=== PATIENT | female | born 1995 | race American Indian/Alaskan Native ===

== ENCOUNTER 2016-11-16 20:39 | Inpatient (IN) | payer SELFPAY ==
[2016-11-16 21:25] LABS: Basophils % (Auto) 0.2 % (0.0-1.8); Eosinophils % (Auto) 2.2 % (0.0-4.3); Hemoglobin 12.5 gm/dl (10.1-14.3); Mean Corpuscular HGB Conc 35 % (30-34); Mean Corpuscular Hemoglobin 32 pg (28-32); Mean Corpuscular Volume 92 fl (79-97); Platelet Count 213 K/mm3 (140-440); Red Blood Count 3.93 M/mm3 (3.65-5.03); Red Cell Distribution Width 13.5 % (13.2-15.2)
[2016-11-16 21:30] LABS: Anion Gap 18 mmol/L; BUN/Creatinine Ratio 6.25; Blood Urea Nitrogen 5 mg/dL (7-17); Calcium 8.4 mg/dL (8.4-10.2); Carbon Dioxide 24 mmol/L (22-30); Chloride 98.6 mmol/L (98-107); Glucose 116 mg/dL (65-100); Sodium 138 mmol/L (137-145)
[2016-11-16 21:31] LABS: Potassium 2.8 mmol/L (3.6-5.0)
--- NOTE | 2016-11-16 22:48 | XRay Report ---
FINAL REPORT PROCEDURE: XR CHEST ROUTINE 2V TECHNIQUE: PA and lateral chest radiographs were obtained. CPT 10367 HISTORY: Shortness of breath COMPARISON: No prior studies are available for comparison. FINDINGS: Heart: Normal contour. Mediastinum/Vessels: Normal contour. Lungs/Pleural space: No infiltrate, effusion, or pneumothorax is seen. Bony thorax: No acute osseous abnormality. Other: IMPRESSION: No radiographic evidence of acute cardiopulmonary disease process.
[2016-11-16] MEDS ORDERED: ZOFRAN IV ONE (22:54)
[2016-11-16] MEDS ORDERED: K-DUR PO ONE (22:54)
[2016-11-16] MEDS ORDERED: D5NS 1,000 ML IV SCH ×2 (23:00)
[2016-11-16 23:16] LABS: Albumin 3.6 g/dL (3.9-5); Albumin/Globulin Ratio 1.2 %; Bilirubin,Indirect 0.9 mg/dL; Bilirubin,Total 1.9 mg/dL (0.1-1.2); Total Protein 6.6 g/dL (6.3-8.2)
[2016-11-17 00:24] LABS: Bilirubin,Urine NEG (Negative); Blood,Urine SM (Negative); Ketones,Urine NEG (Negative); Leukocyte Esterase,Urine NEG (Negative); Nitrite,Urine NEG (Negative); Urobilinogen,Urine < 2.0 mg/dL (<2.0)
[2016-11-17] MEDS ORDERED: TORADOL IV ONE (00:25)
[2016-11-17] MEDS ORDERED: TYLENOL PO ONE (00:27)
[2016-11-17] MEDS ORDERED: NACL ONE (00:59)
--- NOTE | 2016-11-17 01:18 | Emergency Department Report ---
ED N/V/D HPI - General Chief complaint: Dyspnea/Respdistress Stated complaint: WEAK, BODY PAIN, DESMOND Time Seen by Provider: 11/16/16 22:47 Source: patient Mode of arrival: Ambulatory Limitations: No Limitations - History of Present Illness Initial comments: 21-year-old female with no significant Past medical history presents to the hospital with continued nausea, vomiting, pain and generalized weakness. Symptoms started after eating a marble cake at a [employer] 1 the night. Patient developed vomiting, hot flashes, and puritic rash. Patient was seen and evaluated at [facility] on the . She was diagnosed with allergic dermatitis due to ingested food. Patient also had a headache, vomiting, by mouth intolerance, and upper abdominal discomfort at that time. She was discharged on cetirizine, hydroxyzine, and prednisone 20 mg 4 days. Rash has improved the patient's continued while taking the prescribed medication but pt continues to have vomiting with by mouth intolerance and body aches. She has not been able to eat or drink much in the last 6 days. Patient complains of frontal headache. She also complains of posterior neck pain, upper abdominal pain, and weight loss. - Related Data Allergies Allergy/AdvReac Type Severity Reaction Status Date / Time No Known Allergies Allergy Verified 11/16/16 20:48 ED Review of Systems ROS: Stated complaint: WEAK, BODY PAIN, DESMOND Other details as noted in HPI Comment: All other systems reviewed and negative Other: Constitutional: Fever developed while in the ED Eyes: No eye pain visual changes ENT: No ear pain or throat pain Neck: Neck pain Respiratory: Denies cough wheezing shortness of breath Cardiovascular: Positive chest pain GI: abdominal pain, nausea, vomiting. Denies diarrhea : Denies dysuria Musculoskeletal: Denies back pain, joint swelling Skin: Denies rash, lesions, erythema Neurologic: Denies numbness, weakness Psychiatric: Denies suicidal ideation, hallucinations ED Past Medical Hx - Past Medical History Previous Medical History?: No - Surgical History Past Surgical History?: No - Social History Smoking Status: Never Smoker Substance Use Type: Alcohol ED Physical Exam - General Limitations: No Limitations - Other Other exam information: General: No limitations, patient is alert in no acute distress Head exam: Atraumatic, normocephalic Eyes exam: Normal appearance, pupils equal reactive to light, extraocular movements intact ENT: Dry mucous membrane Neck exam: Normal inspection, full range of motion, no meningismus, mild generalized posterior tenderness however no nuchal rigidity Respiratory exam: Clear to auscultation bilateral, no wheezes, rales, crackles Cardiovascular: Mild tachycardia regular rhythm Abdomen: Soft, nondistended, right upper quadrant, epigastric, left upper quadrant tenderness, with normal bowel sounds, no rebound, or guarding Extremity: Full range of motion normal inspection no deformity Back: Normal Inspection, full range of motion, no tenderness Neurologic: Alert, oriented x3, cranial nerves intact, no motor or sensory deficit Psychiatric: normal affect, normal mood Skin: Warm, dry, intact ED Course Vital Signs 11/16/16 11/17/16 11/17/16 20:49 00:21 01:12 Temperature 98 F 101.9 F H Pulse Rate 120 H 99 H Respiratory 16 18 18 Rate Blood Pressure 92/57 Blood Pressure 91/60 [Left] O2 Sat by Pulse 100 100 100 Oximetry 11/17/16 01:28 Temperature Pulse Rate Respiratory 20 Rate Blood Pressure Blood Pressure [Left] O2 Sat by Pulse Oximetry - Reevaluation(s) Reevaluation #1: 11/17/16 Patient received Toradol, Tylenol, D5NS, by mouth potassium and Zofran with improving symptoms - Consultations Consultation #1: 11/17/16 CT was also discussed with Dr. Ward. Nt a surgical case at this time. Intussusception of the bowel may be intermittent ED Medical Decision Making - Lab Data Result diagrams: 11/16/16 20:55 11/16/16 20:55 Lab Results 11/16/16 11/16/16 11/16/16 Range/Units 20:55 20:55 20:55 WBC 19.0 H (4.5-11.0) K/mm3 RBC 3.93 (3.65-5.03) M/mm3 Hgb 12.5 (10.1-14.3) gm/dl Hct 36.0 (30.3-42.9) % MCV 92 (79-97) fl MCH 32 (28-32) pg MCHC 35 H (30-34) % RDW 13.5 (13.2-15.2) % Plt Count 213 (140-440) K/mm3 Lymph % (Auto) 6.8 L (13.4-35.0) % [place] % (Auto) 7.8 H (0.0-7.3) % Eos % (Auto) 2.2 (0.0-4.3) % Baso % (Auto) 0.2 (0.0-1.8) % Lymph # 1.3 (1.2-5.4) K/mm3 [place] # 1.5 H (0.0-0.8) K/mm3 Eos # 0.4 (0.0-0.4) K/mm3 Baso # 0.0 (0.0-0.1) K/mm3 Seg Neutrophils % 83.0 H (40.0-70.0) % Seg Neutrophils # 15.8 H (1.8-7.7) K/mm3 Sodium 138 (137-145) mmol/L Potassium 2.8 L* (3.6-5.0) mmol/L Chloride 98.6 (98-107) mmol/L Carbon Dioxide 24 (22-30) mmol/L Anion Gap 18 mmol/L BUN 5 L (7-17) mg/dL Creatinine 0.8 (0.7-1.2) mg/dL Estimated GFR > 60 ml/min BUN/Creatinine Ratio 6.25 % Glucose 116 H (65-100) mg/dL Calcium 8.4 (8.4-10.2) mg/dL Magnesium 2.10 (1.7-2.3) mg/dL Total Bilirubin (0.1-1.2) mg/dL Direct Bilirubin (0-0.2) mg/dL Indirect Bilirubin mg/dL AST (5-40) units/L ALT (7-56) units/L Alkaline Phosphatase (35-129) units/L Troponin T < 0.010 (0.00-0.029) ng/mL Total Protein (6.3-8.2) g/dL Albumin (3.9-5) g/dL Albumin/Globulin Ratio % Lipase (13-60) units/L Urine Color (Yellow) Urine Turbidity (Clear) Urine pH (5.0-7.0) Ur Specific [place] (1.003-1.030) Urine Protein (Negative) mg/dL Urine Glucose (UA) (Negative) mg/dL Urine Ketones (Negative) mg/dL Urine Blood (Negative) Urine Nitrite (Negative) Ur Reducing Substances Urine Bilirubin (Negative) Urine Ictotest Urine Urobilinogen (<2.0) mg/dL Ur Leukocyte Esterase (Negative) Urine WBC (Auto) (0.0-6.0) /HPF Urine RBC (Auto) (0.0-6.0) /HPF Urine HCG, Qual (Negative) 11/16/16 11/16/16 Range/Units 20:55 23:41 WBC (4.5-11.0) K/mm3 RBC (3.65-5.03) M/mm3 Hgb (10.1-14.3) gm/dl Hct (30.3-42.9) % MCV (79-97) fl MCH (28-32) pg MCHC (30-34) % RDW (13.2-15.2) % Plt Count (140-440) K/mm3 Lymph % (Auto) (13.4-35.0) % [place] % (Auto) (0.0-7.3) % Eos % (Auto) (0.0-4.3) % Baso % (Auto) (0.0-1.8) % Lymph # (1.2-5.4) K/mm3 [place] # (0.0-0.8) K/mm3 Eos # (0.0-0.4) K/mm3 Baso # (0.0-0.1) K/mm3 Seg Neutrophils % (40.0-70.0) % Seg Neutrophils # (1.8-7.7) K/mm3 Sodium (137-145) mmol/L Potassium (3.6-5.0) mmol/L Chloride (98-107) mmol/L Carbon Dioxide (22-30) mmol/L Anion Gap mmol/L BUN (7-17) mg/dL Creatinine (0.7-1.2) mg/dL Estimated GFR ml/min BUN/Creatinine Ratio % Glucose (65-100) mg/dL Calcium (8.4-10.2) mg/dL Magnesium (1.7-2.3) mg/dL Total Bilirubin 1.90 H (0.1-1.2) mg/dL Direct Bilirubin 1.0 H (0-0.2) mg/dL Indirect Bilirubin 0.9 mg/dL AST 24 (5-40) units/L ALT 69 H (7-56) units/L Alkaline Phosphatase 183 H (35-129) units/L Troponin T (0.00-0.029) ng/mL Total Protein 6.6 (6.3-8.2) g/dL Albumin 3.6 L (3.9-5) g/dL Albumin/Globulin Ratio 1.2 % Lipase 105 H (13-60) units/L Urine Color Yellow (Yellow) Urine Turbidity Clear (Clear) Urine pH 6.0 (5.0-7.0) Ur Specific [place] 1.004 (1.003-1.030) Urine Protein 30 mg/dl (Negative) mg/dL Urine Glucose (UA) Neg (Negative) mg/dL Urine Ketones Neg (Negative) mg/dL Urine Blood Sm (Negative) Urine Nitrite Neg (Negative) Ur Reducing Substances Not Reportable Urine Bilirubin Neg (Negative) Urine Ictotest Not Reportable Urine Urobilinogen < 2.0 (<2.0) mg/dL Ur Leukocyte Esterase Neg (Negative) Urine WBC (Auto) 4.0 (0.0-6.0) /HPF Urine RBC (Auto) 2.0 (0.0-6.0) /HPF Urine HCG, Qual Negative (Negative) - Radiology Data Radiology results: report reviewed Chest x-ray: No acute findings CT head: No acute findings Ultrasound abdomen: No acute findings CT abdomen and pelvis IV contrast: Short segment intussusception involving small bowel loops of the right mid abdomen. No bowel obstruction. There are several fluid-filled small bowel loops. May be mild enteritis of other small bowel. Appendix normal. small amount Free fluid in pelvis physiologic reactive. - Medical Decision Making Other differential: Pancreatitis, dehydration, initially abnormality, sepsis Patient's hypokalemia is likely secondary to vomiting and poor by mouth intake. Leukocytosis is probably a combination of recent stable use as well as acute infection. No bacterial infection identified after laboratory testing and imaging. I highly suspect a viral syndrome. Patient will be admitted to the hospital for further hydration, potassium supplementation, and monitoring of symptoms. - Differential Diagnosis gastritis, viral syndrome, food poisoning, intracranial lesion, cholecystit Critical Care Time: No Critical care attestation.: If time is entered above; I have spent that time in minutes in the direct care of this critically ill patient, excluding procedure time. ED Disposition Clinical Impression: Viral syndrome, Vomiting, Fever, Leukocytosis, Hypokalemia, Elevated liver enzymes, Dehydration Disposition: DC-09 OP ADMIT IP TO THIS HOSP Is pt being admited?: Yes Condition: Stable Time of Disposition: 03:30 (Dr Griffith/hosp)
--- NOTE | 2016-11-17 01:24 | Ultrasound Report ---
FINAL REPORT EXAM: US ABDOMEN COMPLETE HISTORY: elevated lft, fever COMPARISON: None available. TECHNIQUE: Several real-time grayscale and color Doppler images were obtained. FINDINGS: Visualized portions of the pancreas and liver are homogeneous in echogenicity. Visualized aorta is normal in caliber. Proximal aorta measures 1.0 centimeters in diameter. Right kidney measures 13.0 centimeters in length. Left kidney measures 11.8 centimeters in length. No hydronephrosis. No shadowing gallstones. Gallbladder is contracted. This limits evaluation of gallbladder wall thickening. No pericholecystic fluid. Common bile duct measures 2 millimeters in thickness. No biliary dilatation. Echogenic foci within the spleen liver which could reflect granulomas. IMPRESSION: No cholelithiasis or biliary dilatation. Echogenic foci in the spleen liver which may reflect calcified granulomas.
--- NOTE | 2016-11-17 01:56 | Cat Scan Report ---
FINAL REPORT EXAM: CT HEAD/BRAIN WO CON HISTORY: cárdenas, n,v COMPARISON: None available. TECHNIQUE: Axial images obtained skull base through vertex. FINDINGS: No acute intracranial hemorrhage, midline shift or pathologic extra axial fluid collection. Ventricles and cisterns are normal in size and configuration for the patient's age. Manzanares-white differentiation preserved. Calvarium grossly intact. Mild mucosal thickening the paranasal sinuses. Mastoid air cells are clear. Orbits are grossly unremarkable. IMPRESSION: No grossly acute intracranial abnormality.
--- NOTE | 2016-11-17 02:52 | Cat Scan Report ---
FINAL REPORT EXAM: CT ABDOMEN PELVIS W CON HISTORY: n,v, upper abd pain COMPARISON: Abdominal ultrasound from the same date. TECHNIQUE: Contiguous axial images were obtained. Additional sagittal and coronal reformatted images were obtained. Administration of IV contrast given per institution protocol. Images submitted for interpretation. FINDINGS: Lung bases are clear. No calcified gallstones or biliary dilatation. Mild focal fatty infiltration of the liver along the falciform ligament. Calcified granulomas within the spleen. Liver, pancreas, adrenal glands are grossly unremarkable. No solid renal lesion. Mild prominence the renal pelves and ureters bilaterally which may relate to distended state of the urinary bladder. No obstructive lesion identified along the course of the ureters. No perinephric fat stranding or fluid. Short segment intussusception right mid abdomen. This measures 5 centimeters in length (series 2, image 171). No associated bowel obstruction. Several fluid-filled small bowel loops. Mild enteritis cannot be excluded. The appendix measures 4-5 millimeters in diameter and is normal in caliber (series 200, image 54).. Uterus and ovaries are grossly unremarkable. Small amount of free fluid in the pelvis which may be physiologic or reactive. Bony pelvis and lumbar spine are grossly intact. IMPRESSION: Short segment intussusception involving small bowel loops segment right mid abdomen. No associated bowel obstruction. There is several fluid-filled small bowel loops. There may be mild enteritis of other small bowel loops. The appendix is normal in caliber. Small amount of free fluid in the pelvis which may be physiologic or reactive. No abscess.
[2016-11-17] MEDS ORDERED: NACL 0.9% 1000 ML 1,000 ML ONE (06:32)
[2016-11-17] MEDS ORDERED: NACL 0.9% 1000 ML 1,000 ML IV ONE ×2 (07:17→08:14)
--- NOTE | 2016-11-17 07:54 | History and Physical Report ---
History of Present Illness Date of examination: 11/17/16 Date of admission: 11/17/16 Chief complaint: CC:Nausea Vomiting and Abdominal pain for 5 days. Rash for 2 days. History of present illness: ANN: 21-year-old female with no significant Past medical history presents to the hospital with continued nausea, vomiting, pain and generalized weakness for 4 days. Symptoms started after eating a cake at a green party on 12 November. Patient developed vomiting, hot flashes, and pruritic rash. Patient was seen and evaluated at [facility] on the . She was diagnosed with allergic dermatitis due to ingested food. Patient also had a headache, vomiting, poor PO intolerance, and upper abdominal discomfort at that time. She was discharged on cetirizine, hydroxyzine, and prednisone 20 mg 4 days. Rash has improved. Patient continued to have vomitingpoor PO intolerance and body aches. She has not been able to eat or drink much in the last 5 days. Patient complains of frontal headache. She also complains of posterior neck pain, upper abdominal pain, and weight loss. Past Medical History None Past Surgical History?: None Social History Smoking Status: Never Smoker Substance Use Type: Alcohol occasionally Fam HX No HTN or T2DM Review of Systems ROS: Details as noted in HPI Comment: All other systems reviewed and negative Constitutional: Fever developed while in the ED Eyes: No eye pain visual changes ENT: No ear pain or throat pain Neck: Neck pain Respiratory: Denies cough wheezing shortness of breath Cardiovascular: Positive chest pain GI: abdominal pain, nausea, vomiting. Denies diarrhea : Denies dysuria Musculoskeletal: Denies back pain, joint swelling Has Gen Body aches Skin: Denies rash, lesions, erythema Neurologic: Denies numbness, weakness Psychiatric: Denies suicidal ideation, hallucinations Past History Past Medical History: No medical history Past Surgical History: No surgical history Social history: no significant social history, lives with family Family history: no significant family history Medications and Allergies Allergies Allergy/AdvReac Type Severity Reaction Status Date / Time No Known Allergies Allergy Verified 11/16/16 20:48 Home Medications Medication Instructions Recorded Confirmed Last Taken Type No Known Home Medications [No 11/17/16 11/17/16 Unknown History Reported Home Medications] Active Meds: Active Medications Sodium Chloride (Nacl 0.9% 1000 Ml) 1,000 mls @ 999 mls/hr IV BOLUS ONE Stop: 11/17/16 08:17 Last Admin: 11/17/16 07:39 Dose: 999 mls/hr Exam - Physical Exam Narrative exam: In mild distress sec to abd pain - Constitutional Vitals: Temp Pulse Resp BP Pulse Ox 98.6 F 78 20 91/55 99 11/17/16 05:01 11/17/16 05:01 11/17/16 05:01 11/17/16 05:01 11/17/16 05:01 General appearance: Present: mild distress, well-nourished - EENT Eyes: Present: PERRL ENT: hearing intact, clear oral mucosa, other (Tongue Dry) - Neck Neck: Present: supple, normal ROM - Respiratory Respiratory effort: normal Respiratory: bilateral: CTA - Cardiovascular Heart Sounds: Present: S1 & S2. Absent: rub, click - Extremities Extremities: pulses symmetrical, No edema Peripheral Pulses: within normal limits - Abdominal General gastrointestinal: Present: soft, tender (Tender all over.No Guarding), non-distended, normal bowel sounds Female genitourinary: Present: normal - Integumentary Integumentary: Present: clear, warm, dry - Musculoskeletal Musculoskeletal: gait normal, strength equal bilaterally - Psychiatric Psychiatric: appropriate mood/affect, intact judgment & insight - Neurologic Neurologic: CNII-XII intact, moves all extremities - Allied Health Allied health notes reviewed: nursing, case management Results - Labs CBC & Chem 7: 11/16/16 20:55 11/16/16 20:55 Labs: Laboratory Last Values WBC 19.0 K/mm3 (4.5-11.0) H 11/16/16 20:55 RBC 3.93 M/mm3 (3.65-5.03) 11/16/16 20:55 Hgb 12.5 gm/dl (10.1-14.3) 11/16/16 20:55 Hct 36.0 % (30.3-42.9) 11/16/16 20:55 MCV 92 fl (79-97) 11/16/16 20:55 MCH 32 pg (28-32) 11/16/16 20:55 MCHC 35 % (30-34) H 11/16/16 20:55 RDW 13.5 % (13.2-15.2) 11/16/16 20:55 Plt Count 213 K/mm3 (140-440) 11/16/16 20:55 Lymph % (Auto) 6.8 % (13.4-35.0) L 11/16/16 20:55 [place] % (Auto) 7.8 % (0.0-7.3) H 11/16/16 20:55 Eos % (Auto) 2.2 % (0.0-4.3) 11/16/16 20:55 Baso % (Auto) 0.2 % (0.0-1.8) 11/16/16 20:55 Lymph # 1.3 K/mm3 (1.2-5.4) 11/16/16 20:55 [place] # 1.5 K/mm3 (0.0-0.8) H 11/16/16 20:55 Eos # 0.4 K/mm3 (0.0-0.4) 11/16/16 20:55 Baso # 0.0 K/mm3 (0.0-0.1) 11/16/16 20:55 Seg Neutrophils % 83.0 % (40.0-70.0) H 11/16/16 20:55 Seg Neutrophils # 15.8 K/mm3 (1.8-7.7) H 11/16/16 20:55 Sodium 138 mmol/L (137-145) 11/16/16 20:55 Potassium 2.8 mmol/L (3.6-5.0) L* 11/16/16 20:55 Chloride 98.6 mmol/L (98-107) 11/16/16 20:55 Carbon Dioxide 24 mmol/L (22-30) 11/16/16 20:55 Anion Gap 18 mmol/L 11/16/16 20:55 BUN 5 mg/dL (7-17) L 11/16/16 20:55 Creatinine 0.8 mg/dL (0.7-1.2) 11/16/16 20:55 Estimated GFR > 60 ml/min 11/16/16 20:55 BUN/Creatinine Ratio 6.25 % 11/16/16 20:55 Glucose 116 mg/dL (65-100) H 11/16/16 20:55 Calcium 8.4 mg/dL (8.4-10.2) 11/16/16 20:55 Magnesium 2.10 mg/dL (1.7-2.3) 11/16/16 20:55 Total Bilirubin 1.90 mg/dL (0.1-1.2) H 11/16/16 20:55 Direct Bilirubin 1.0 mg/dL (0-0.2) H 11/16/16 20:55 Indirect Bilirubin 0.9 mg/dL 11/16/16 20:55 AST 24 units/L (5-40) 11/16/16 20:55 ALT 69 units/L (7-56) H 11/16/16 20:55 Alkaline Phosphatase 183 units/L (35-129) H 11/16/16 20:55 Troponin T < 0.010 ng/mL (0.00-0.029) 11/16/16 20:55 Total Protein 6.6 g/dL (6.3-8.2) 11/16/16 20:55 Albumin 3.6 g/dL (3.9-5) L 11/16/16 20:55 Albumin/Globulin Ratio 1.2 % 11/16/16 20:55 Lipase 105 units/L (13-60) H 11/16/16 20:55 Urine Color Yellow (Yellow) 11/16/16 23:41 Urine Turbidity Clear (Clear) 11/16/16 23:41 Urine pH 6.0 (5.0-7.0) 11/16/16 23:41 Ur Specific [place] 1.004 (1.003-1.030) 11/16/16 23:41 Urine Protein 30 mg/dl mg/dL (Negative) 11/16/16 23:41 Urine Glucose (UA) Neg mg/dL (Negative) 11/16/16 23:41 Urine Ketones Neg mg/dL (Negative) 11/16/16 23:41 Urine Blood Sm (Negative) 11/16/16 23:41 Urine Nitrite Neg (Negative) 11/16/16 23:41 Ur Reducing Substances Not Reportable 11/16/16 23:41 Urine Bilirubin Neg (Negative) 11/16/16 23:41 Urine Ictotest Not Reportable 11/16/16 23:41 Urine Urobilinogen < 2.0 mg/dL (<2.0) 11/16/16 23:41 Ur Leukocyte Esterase Neg (Negative) 11/16/16 23:41 Urine WBC (Auto) 4.0 /HPF (0.0-6.0) 11/16/16 23:41 Urine RBC (Auto) 2.0 /HPF (0.0-6.0) 11/16/16 23:41 Urine HCG, Qual Negative (Negative) 11/16/16 23:41 - Imaging and Cardiology CT scan - abdomen: report reviewed (Short segment intussusception Rt mid abdomeninvolving small bowel loops .No Bowel obstruction.) Assessment and Plan Advance Directives: Yes VTE prophylaxis?: Chemical Plan of care discussed with patient/family: Yes - Patient Problems (1) SIRS (systemic inflammatory response syndrome) Current Visit: Yes Status: Acute Plan to address problem: Clinical picture c/w SIRS.High WBC count.Patient started on IV Levaquin for broad spectrum coverage.IV fluids for now. (2) Hypokalemia Current Visit: Yes Status: Acute Plan to address problem: IV kcl and po kcl as tolerated.Check BMP.Iv fluids also (3) Dehydration Current Visit: Yes Status: Acute Plan to address problem: IV fluids.Clear liquids as tolerated (4) Viral syndrome Current Visit: Yes Status: Acute Plan to address problem: Probable viral sndrome in view of high fever and body aches (5) Intussusception of small bowel Current Visit: Yes Status: Acute Plan to address problem: A short segment is involved.Possible abnormality for a long period of time.Do not think her symptoms are sec to this.Incidental finding.Surgical consult if necessary. (6) DVT prophylaxis Current Visit: Yes Status: Acute Plan to address problem: On Lovenox 40 mg sq qd
[2016-11-17] MEDS ORDERED: MILK OF MAGNESIA PO PRN (08:00)
[2016-11-17] MEDS ORDERED: DULCOLAX PR PRN (08:00)
[2016-11-17] MEDS ORDERED: PERCOCET 5/325 PO PRN (08:00)
[2016-11-17] MEDS ORDERED: NACL 0.9% IV ONE (08:06)
[2016-11-17] MEDS: LEVAQUIN 750MG/150ML 750 MG/150 ML BAG IV SCH (09:57)
[2016-11-17] MEDS: PEPCID IV SCH ×2 (09:58→22:35)
[2016-11-17] MEDS: D5NS 1,000 ML IV SCH ×2 (13:27→22:42)
[2016-11-17] MEDS: TYLENOL PO PRN (16:46)
[2016-11-17] MEDS: ZOFRAN IV PRN (22:34)
[2016-11-18] MEDS: TYLENOL PO PRN (00:53)
[2016-11-18] MEDS: K-DUR PO ONE ×2 (08:00→16:41)
[2016-11-18 08:19] LABS: Hematocrit 35.8 % (30.3-42.9); Mean Corpuscular HGB Conc 34 % (30-34); Mean Corpuscular Hemoglobin 31 pg (28-32); Mean Corpuscular Volume 94 fl (79-97); Platelet Count 222 K/mm3 (140-440); Red Blood Count 3.83 M/mm3 (3.65-5.03); Red Cell Distribution Width 13.8 % (13.2-15.2)
[2016-11-18 08:26] LABS: White Blood Count 23.8 K/mm3 (4.5-11.0)
[2016-11-18] MEDS: DILAUDID IV PRN ×2 (08:51→22:31)
[2016-11-18] MEDS: D5NS 1,000 ML IV SCH ×3 (08:52→20:01)
[2016-11-18] MEDS: ZOFRAN IV PRN ×3 (08:52→22:30)
--- NOTE | 2016-11-18 08:53 | Admit Criteria Form ---
Admission Criteria Documentation: SYSTEMIC OR INFECTIOUS CONDITION Clinical Indications for Admission to Inpatient Care (Place 'X' for any and all applicable criteria): Hospital admission is needed for appropriate care of the patient because of ANY ONE of the following: []I. Hemodynamic instability indicated by ANY ONE of the following(1)(2)(3)(4 )(5): []a. Vital sign abnormality not readily corrected by appropriate treatment within 12 to 24 hours indicated by ANY ONE of the following: []i) Tachycardia that persists despite appropriate treatment []ii) Hypotension that persists despite appropriate treatment []iii) Orthostatic vital sign changes that persist despite appropriate treatment []b. Vital sign abnormality that is severe indicated by ANY ONE of the following: []i. Inadequate perfusion indicated by ANY ONE of the following : []1) Lactic acidosis (greater than 2 mmol/L) []2) New abnormal capillary refill (greater than 3 seconds) []3) Reduced urine output []4) New altered mental status []5) Myocardial Ischemia []ii. Mean arterial pressure [A] less than 60 mm Hg []iii. Mean arterial pressure[A] less than 70 mm Hg after 30 minutes of appropriate treatment (eg, fluid resuscitation) []iv. Sustained heart rate greater than 120 beats per minute in adult []v. IV inotropic or vasopressor medication required to maintain adequate blood pressure or perfusion [X]II. Systemic or infectious condition causing severe symptoms or findings not responsive to emergency or observation care treatment (as appropriate) indicated by ANY ONE of the following: []a. Cardiac arrhythmias of immediate concern(1)(2)(3) []b. Severe endocrine disorder (eg, thyrotoxicosis, adrenal insufficiency)(4)(5) []c. Seizures (eg, new or recurrent)(6) []d. New-onset end organ failure or dysfunction as indicated by ANY ONE of the following: []i. Acute unexplained hypoxemia (eg, not from lung infection or chronic disease)(7)(8)(9) []ii. Acute renal failure as indicated by new onset of ANY ONE of the following(10)(11)(12)(13)(14): []1) 3-fold rise in serum creatinine from baseline []2) Serum creatinine greater than 4 mg/dL (354 micromoles/L) with acute rise greater than 0.5 mg/dL (44.2 micromoles/L) []3) Reduction of more than 75% in estimated glomerular filtration rate from baseline. []4) Estimated glomerular filtration rate less than 35 mL/min/1.73m2 ( 0.59 mL/sec/1.73m2) in child younger than 18 years. []5) Cessation of urine output indicated by ALL of the following: []A. Adequate volume status []B. Inadequate urine output as indicated by ANY ONE of the following: []a. Urine output less than 0.3 mL/kg/hr for 24 hours []b. Anuria (urine output less than 0.1 mL/kg/hr) for 12 hours []iii. Acute mental status changes(15) []iv. Acute hepatic failure (eg, plasma bilirubin greater than 4 mg/ dL (68 micromoles/L), new INR greater than 2.0)(16)(17) [X]e. Unmanageable nausea and vomiting(18) []f. New-onset or uncontrolled central diabetes insipidus(19)(20) []g. Clinically significant dehydration(18)(21) []h. Hypoglycemia(22) []i. Acidosis (pH less than 7.35) or alkalosis (pH greater than 7.45)( 22)(23) []j. Toxic drug level that indicates need for specific monitoring or treatment(24)(25) [X]k. Severe electrolyte abnormalities indicated by ALL of the following (1)(2)(3): []i. Electrolytes and associated findings are not as expected for patient baseline or acceptable treatment effects. []ii. Severe abnormalities indicated by ANY ONE of the following: []1) Sodium less than 130 mEq/L (mmol/L) (new) []2) Sodium less than 135 mEq/L (mmol/L) with ANY ONE of the following: []A. Uncorrectable (to near normal or chronic baseline) after trial of outpatient and emergency treatment []B. Altered mental status []C. Seizures []D. Severe medical etiology requiring inpatient management (eg , heart failure, hypovolemia) []3) Sodium greater than 155 mEq/L (mmol/L) []4) Sodium greater than 150 mEq/L (mmol/L) with ANY ONE of the following: []A. Uncorrectable (to near normal or chronic baseline) with outpatient and emergency treatment []B. Altered mental status []C. Seizures []D. Severe medical etiology (eg, hypovolemia, diabetes insipidus) []5) Potassium less than 2.5 mEq/L (mmol/L) despite outpatient and emergency treatment [X]6) Potassium less than 3 mEq/L (mmol/L) with ANY ONE of the following : []A. Weakness []B. Cardiac abnormality (eg, arrhythmia, conduction disturbance ) []C. Cardiac ischemia []D. Ileus []E. Ongoing medical cause requiring inpatient management (eg, acute renal wasting or SIADH) [X]F. Other severe symptoms []7) Potassium greater than 6.5 mEq/L (mmol/L) []8) Potassium greater than 5 mEq/L (mmol/L) with ANY ONE of the following: []A. Uncorrectable (to near normal or chronic baseline) with outpatient and emergency treatment []B. Severe ECG findings[A] []C. Acute worsening of renal failure (creatinine greater than 2.5 mg/dL (221 micromoles/L) or significant elevation for age and size) []D. Severe weakness []E. Severe medical etiology (eg, hemolysis, infection, drug overdose) []9) Calcium less than 7 mg/dL (1.75 mmol/L) despite outpatient and emergency treatment(5) []10) Calcium less than 8 mg/dL (2 mmol/L) with significant symptoms or findings (eg, altered mental status, muscle spasms, seizures, breathing difficulty, cardiac abnormality (eg, arrhythmia or conduction disturbance))(5) []11) Calcium greater than 14 mg/dL (3.5 mmol/L)(5) []12) Calcium greater than 12 mg/dL (3 mmol/L) with ANY ONE of the following(5): []A. Uncorrectable (to near normal or chronic baseline) with outpatient and emergency treatment []B. Significant dehydration or hypovolemia as indicated by ALL of the following(3)(6)(7): []a. Not resolved with initial treatments []b. Clinically significant dehydration as indicated by ANY ONE of the following: [](1) Vomiting refractory to outpatient treatment (ie, precluding oral rehydration) [](2) Inability to drink [](3) Hypernatremia or other electrolyte abnormality unable to be corrected with outpatient and emergency treatment [](4) Failure to remain hydrated with outpatient therapy [](5) Reduced urine output [](6) Hypotension [](7) Serious cause for dehydration requiring acute hospitalization ( eg, bowel obstruction, increased intracranial pressure, infectious cause) [](8) Child with ANY ONE of the following(8): [](i) Severe abdominal tenderness [](ii) Adequate care not available at home [](iii) Severe dehydration (greater than 9% loss of body weight) []C. Significant symptoms or findings (eg, altered mental status , cardiac abnormality (eg, arrhythmia, conduction disturbance), malignant etiology requiring inpatient treatment) []13) Phosphorus less than 1 mg/dL (0.32 mmol/L) []14) Phosphorus less than 1.5 mg/dL (0.48 mmol/L) with ANY ONE of the following: []A. Patient unresponsive to outpatient and emergency treatment []B. Significant symptoms or findings (eg, weakness, altered mental status, breathing difficulty, seizures, rhabdomyolysis) []15) Phosphorus greater than 10 mg/dL (3.2 mmol/L) []16) Phosphorus greater than 4.5 mg/dL (1.45 mmol/L) (new) with ANY ONE of the following: []A. Severe medical etiology (eg, crush injury, acute renal failure) []B. Associated hypocalcemia with significant findings (eg, neurologic symptoms, altered mental status, muscle spasms, seizures, breathing difficulty, cardiac abnormality (eg, arrhythmia, conduction disturbance)) []16) Magnesium less than 1 mg/dL (0.41 mmol/L) []17) Magnesium less than 1.5 mg/dL (0.62 mmol/L) with ANY ONE of the following: []A. Patient unresponsive to outpatient and emergency treatment []B. Associated hypocalcemia with significant findings (eg, altered mental status, muscle spasms, seizures, breathing difficulty, cardiac abnormality (eg, arrhythmia, conduction disturbance)) []C. Associated hypokalemia (potassium less than 3 mEq/L (mmol/L )) with risk of arrhythmia []18) Magnesium greater than 4 mEq/L (2 mmol/L) []19) Magnesium greater than 2.5 mEq/L (1.25 mmol/L) with significant symptoms or findings (eg, weakness, altered mental status, cardiac abnormality (eg, arrhythmia, conduction disturbance), breathing difficulty, severe medical etiology (eg, renal failure, hypovolemia)) []20) Uric acid greater than 20 mg/dL (1190 micromoles/L)(9) []21) Uric acid greater than 8 mg/dL (476 micromoles/L) with significant symptoms or findings of tumor lysis syndrome (eg, creatinine greater than 1.5 times upper limit of normal, cardiac abnormality (eg , arrhythmia, conduction disturbance), seizure)(9) []III. High fever or other high-risk infection situation as indicated by ANY ONE of the following(26)(27)(28): []a. Outpatient and observation care antimicrobial treatment unavailable, not effective, or not appropriate []b. Documented bacteremia []c. Temperature greater than 104.9 degrees F (40.5 degrees C) (oral) []d. Temperature greater than 103.1 degrees F (39.5 degrees C) (oral) or less than 96.8 degrees F (36 degrees C) (rectal) that does not respond to emergency treatment and observation care []IV. High-risk febrile neutropenia[A] as indicated by ANY ONE of the following(29)(30)(31)(32): []a. Profound neutropenia[B] anticipated to extend for more than 7 days []b. Hemodynamic instability []c. Hypoxemia []d. Tachypnea []e. Altered mental status []f. New-onset abdominal pain []g. New-onset vomiting or diarrhea []h. Oral or gastrointestinal mucositis that interferes with swallowing or causes severe diarrhea []i. Focal infection (eg, cellulitis, pneumonia, central line or catheter infection, perirectal abscess) []j. Renal insufficiency (eg, GFR of less than 30 mL/min/1.73m2 (0.5 mL/sec /1.73m2)). []k. Severe liver dysfunction (transaminase levels greater than 5 times normal) []l. Platelet count less than 50,000/mm3 (50 x109/L)(33) []m. Leukemia or lymphoma induction therapy []n. Leukemia not in complete remission or with evidence of disease progression []o. Bone marrow transplant patient []p. Alemtuzumab being used for therapy []q. [employer] Association for Supportive Care in Cancer (MASCC) Risk Index score of less than 21[C](33)(35). []V. Isolation required (eg, tuberculosis that requires isolation, Ebola infection)[D](36)(37)(38)(39)(40) []. Gangrene that requires treatment beyond emergency or observation level care(41)(42) []VII. Antitoxin administration and ongoing observation required (eg, tetanus, botulism)(43)(44) []. Suspected infection with rapid progression or severe symptoms as indicated by ANY ONE of the following(45): []a. Streptococcal or staphylococcal toxic shock(46) []b. Diphtheria(47) []c. Hantavirus(48) []d. Severe acute respiratory syndrome(8)(49) []e. Anthrax(50) []f. Ebola[D](36)(37)(38) []g. Necrotizing soft tissue infection(41)(42) []h. Plague(50) []i. Other suspected infection that requires care beyond emergency or observation level care []VII. Severe adverse drug or systemic toxin reaction as indicated by ANY ONE of the following(24): []a. Serotonin syndrome(51)(52) []b. Neuroleptic malignant syndrome(51)(52) []c. Cholinergic syndrome with severe symptoms (eg, bronchorrhea, weakness , mental status changes, seizures)(53) []d. Anticholinergic syndrome []e. Sympathetic syndrome with severe symptoms (eg, seizures, mental status changes, cardiac dysrhythmias) []f. Other severe adverse drug or systemic toxin reaction that remains after emergency or observation level care (as appropriate) []VIII. Allergic reaction with severe symptoms (not responsive to emergency or observation care treatment as appropriate), including ANY ONE of the following(54): []a. Airway edema (pharyngeal, epiglottic, or laryngeal edema) []b. Stridor []c. Respiratory failure []d. Bronchospasm []e. Hypotension []IX. Environmental emergency (not responsive to emergency or observation care treatment as appropriate) as indicated by ANY ONE of the following(55)(56): []a. Hyperthermia []b. Heat stroke []c. Heat exhaustion []d. Hypothermia (temperature less than 95 degrees F (35 degrees C) rectal) (57) []e. Electrocution(58) []X. Complications of transplanted organ (ie, not covered elsewhere)[E] indicated by ANY ONE of the following(59): []a. Acute graft rejection (or graft vs. host disease)[F] requiring inpatient management (eg, intravenous immunosuppression)(60)(61)(62)( 63) []b. Acute failure of transplanted organ necessitating inpatient care (eg, cannot be managed in other setting) []c. Infection requiring inpatient management (eg, Hemodynamic instability, need for intravenous antimicrobial treatment)(64)(65) []d. Other complication of transplanted organ requiring inpatient management []XI. Systemic or Infectious Condition condition, symptom, or finding for which emergency and observation care have failed or are not considered appropriate. See General Criteria: Observation Care, General Admission Criteria or Pediatric General Admission Criteria guideline as appropriate. The [facility] content created by [facility] has been revised. The portions of the content which have been revised are identified through the use of italic text or in bold and [facility] has neither reviewed nor approved the modified material. All other unmodified content is copyright [facility]. Please see references footnoted in the original [facility] edition 2016 Admission Criteria Met: Yes
[2016-11-18 09:15] LABS: Basophils % (Manual) 0 % (0.0-1.8); Blastocytes % (Manual) 0 %
[2016-11-18 09:16] LABS: Burr Cells Few; Crenated RBC Few; Diff Status Complete; Elliptocytes Few; Platelet Estimate Consistent w Auto; Poikilocytosis 1+
[2016-11-18] MEDS: LEVAQUIN 750MG/150ML 750 MG/150 ML BAG IV SCH (09:33)
[2016-11-18] MEDS: PEPCID IV SCH (09:34)
[2016-11-18 09:36] LABS: Alanine Aminotransferase 35 units/L (7-56); Albumin 2.6 g/dL (3.9-5); Albumin/Globulin Ratio 0.8 %; Alkaline Phosphatase 134 units/L (35-129); Anion Gap 16 mmol/L; Blood Urea Nitrogen 4 mg/dL (7-17); Calcium 7.9 mg/dL (8.4-10.2); Carbon Dioxide 23 mmol/L (22-30); Chloride 113.5 mmol/L (98-107); Glucose 110 mg/dL (65-100); Potassium 3.3 mmol/L (3.6-5.0); Sodium 149 mmol/L (137-145); Total Protein 5.9 g/dL (6.3-8.2)
[2016-11-18] MEDS ORDERED: K-DUR PO ONE ×2 (09:55→17:00)
[2016-11-18] MEDS: KCL 10MEQ/100ML 10 MEQ/100 ML BAG IV SCH ×3 (11:52→16:20)
[2016-11-18] MEDS ORDERED: NACL 0.9% 1000 ML 1,000 ML IV ONE (16:57)
--- NOTE | 2016-11-18 16:58 | Progress Note ---
Assessment and Plan Assessment and plan: 21-year-old female with no significant Past medical history presents to the hospital with continued nausea, vomiting, pain and generalized weakness for 4 days. Symptoms started after eating a cake at a [employer] on 12 November. Patient developed vomiting, hot flashes, and pruritic rash. Patient was seen and evaluated at [facility] on the . She was diagnosed with allergic dermatitis due to ingested food. Patient also had a headache, vomiting, poor PO intolerance, and upper abdominal discomfort at that time. She was discharged on cetirizine, hydroxyzine, and prednisone 20 mg 4 days. Rash has improved. Patient continued to have vomiting poor PO intolerance and body aches. She has not been able to eat or drink much in the last 5 days. Patient complains of frontal headache. She also complains of posterior neck pain, upper abdominal pain, and weight loss. - Patient Problems (1) SIRS (systemic inflammatory response syndrome) Current Visit: Yes Status: Acute Plan to address problem: Clinical picture c/w SIRS.High WBC count.Patient started on IV Levaquin for broad spectrum coverage.IV fluids for now. No clear source of infection (2) Hypokalemia Current Visit: Yes Status: Acute Plan to address problem: IV kcl and po kcl as tolerated. Check BMP.Iv fluids also (3) Dehydration/Hypotension Current Visit: Yes Status: Acute Plan to address problem: IV fluids.Clear liquids as tolerated Give fluid bolus (4) Viral syndrome Current Visit: Yes Status: Acute Plan to address problem: Probable viral sndrome in view of high fever and body aches (5) Intussusception of small bowel Current Visit: Yes Status: Acute Plan to address problem: A short segment is involved. Possible abnormality for a long period of time. Do not think her symptoms are sec to this. Incidental finding. If still with nasuea and vomiting and no improvement will get Surgical consult if necessary. (6) Leukocytosis * ?reactive, no further abdominal pain, if persistent nausea will get surgery * Obtain KUB (7) DVT prophylaxis Current Visit: Yes Status: Acute Plan to address problem: On Lovenox 40 mg sq qd History Interval history: Patient seen and examined today still with nausea, and vomiting, nurse reports febrile last night. No further fever reported today. Still not tolerating by mouth intake. Hospitalist Physical - Physical exam Narrative exam: VITAL SIGNS: Reviewed. GENERAL: The patient appeared well nourished and normally developed. Vital signs as documented. HEAD: No signs of head trauma. EYES: Pupils are equal. Extraocular motions intact. EARS: Hearing grossly intact. MOUTH: Oropharynx is normal. NECK: No adenopathy, no JVD. CHEST: Chest with clear breath sounds bilaterally. No wheezes, rales, or rhonchi. CARDIAC: Regular rate and rhythm. S1 and S2, without murmurs, gallops, or rubs. VASCULAR: No Edema. Peripheral pulses normal and equal in all extremities. ABDOMEN: Soft, without detectable tenderness. No sign of distention. No rebound or guarding, and no masses palpated. Bowel Sounds normal. MUSCULOSKELETAL: Good range of motion of all major joints. Extremities without clubbing, cyanosis or edema. NEUROLOGIC EXAM: Alert and oriented x 3. No focal sensory or strength deficits. Speech normal. Follows commands. PSYCHIATRIC: Mood normal. SKIN: Some noticeable skin tattoo across the back. - Constitutional Vitals: Temp Pulse Resp BP Pulse Ox 98.9 F 86 20 94/64 98 11/18/16 08:00 11/18/16 08:00 11/18/16 08:00 11/18/16 08:00 11/18/16 08:00 General appearance: Present: mild distress, well-nourished Results - Labs CBC & Chem 7: 11/18/16 07:40 11/18/16 07:40 Labs: Laboratory Last Values WBC 23.8 K/mm3 (4.5-11.0) H 11/18/16 07:40 RBC 3.83 M/mm3 (3.65-5.03) 11/18/16 07:40 Hgb 12.0 gm/dl (10.1-14.3) 11/18/16 07:40 Hct 35.8 % (30.3-42.9) 11/18/16 07:40 MCV 94 fl (79-97) 11/18/16 07:40 MCH 31 pg (28-32) 11/18/16 07:40 MCHC 34 % (30-34) 11/18/16 07:40 RDW 13.8 % (13.2-15.2) 11/18/16 07:40 Plt Count 222 K/mm3 (140-440) 11/18/16 07:40 Lymph % (Auto) 6.8 % (13.4-35.0) L 11/16/16 20:55 [place] % (Auto) 7.8 % (0.0-7.3) H 11/16/16 20:55 Eos % (Auto) 2.2 % (0.0-4.3) 11/16/16 20:55 Baso % (Auto) 0.2 % (0.0-1.8) 11/16/16 20:55 Lymph # 1.3 K/mm3 (1.2-5.4) 11/16/16 20:55 [place] # 1.5 K/mm3 (0.0-0.8) H 11/16/16 20:55 Eos # 0.4 K/mm3 (0.0-0.4) 11/16/16 20:55 Baso # 0.0 K/mm3 (0.0-0.1) 11/16/16 20:55 Add Manual Diff Complete 11/18/16 07:40 Total Counted 100 11/18/16 07:40 Seg Neutrophils % 83.0 % (40.0-70.0) H 11/16/16 20:55 Seg Neuts % (Manual) 83.0 % (40.0-70.0) H 11/18/16 07:40 Band Neutrophils % 0 % 11/18/16 07:40 Lymphocytes % (Manual) 11.0 % (13.4-35.0) L 11/18/16 07:40 Reactive Lymphs % (Man) 0 % 11/18/16 07:40 Monocytes % (Manual) 4.0 % (0.0-7.3) 11/18/16 07:40 Eosinophils % (Manual) 1.0 % (0.0-4.3) 11/18/16 07:40 Basophils % (Manual) 0 % (0.0-1.8) 11/18/16 07:40 Metamyelocytes % 1.0 % 11/18/16 07:40 Myelocytes % 0 % 11/18/16 07:40 Promyelocytes % 0 % 11/18/16 07:40 Blast Cells % 0 % 11/18/16 07:40 Nucleated RBC % Not Reportable 11/18/16 07:40 Seg Neutrophils # 15.8 K/mm3 (1.8-7.7) H 11/16/16 20:55 Seg Neutrophils # Man 19.8 K/mm3 (1.8-7.7) H 11/18/16 07:40 Band Neutrophils # 0.0 K/mm3 11/18/16 07:40 Lymphocytes # (Manual) 2.6 K/mm3 (1.2-5.4) 11/18/16 07:40 Abs React Lymphs (Man) 0.0 K/mm3 11/18/16 07:40 Monocytes # (Manual) 1.0 K/mm3 (0.0-0.8) H 11/18/16 07:40 Eosinophils # (Manual) 0.2 K/mm3 (0.0-0.4) 11/18/16 07:40 Basophils # (Manual) 0.0 K/mm3 (0.0-0.1) 11/18/16 07:40 Metamyelocytes # 0.2 K/mm3 11/18/16 07:40 Myelocytes # 0.0 K/mm3 11/18/16 07:40 Promyelocytes # 0.0 K/mm3 11/18/16 07:40 Blast Cells # 0.0 K/mm3 11/18/16 07:40 WBC Morphology Not Reportable 11/18/16 07:40 Hypersegmented Neuts Not Reportable 11/18/16 07:40 Hyposegmented Neuts Not Reportable 11/18/16 07:40 Hypogranular Neuts Not Reportable 11/18/16 07:40 Smudge Cells Not Reportable 11/18/16 07:40 Toxic Granulation Not Reportable 11/18/16 07:40 Toxic Vacuolation Not Reportable 11/18/16 07:40 Dohle Bodies Not Reportable 11/18/16 07:40 Pelger-Huet Anomaly Not Reportable 11/18/16 07:40 Bob Rods Not Reportable 11/18/16 07:40 Platelet Estimate Consistent w auto 11/18/16 07:40 Clumped Platelets Not Reportable 11/18/16 07:40 Plt Clumps, EDTA Not Reportable 11/18/16 07:40 Large Platelets Not Reportable 11/18/16 07:40 Giant Platelets Not Reportable 11/18/16 07:40 Platelet Satelliting Not Reportable 11/18/16 07:40 Plt Morphology Comment Not Reportable 11/18/16 07:40 RBC Morphology Not Reportable 11/18/16 07:40 Dimorphic RBCs Not Reportable 11/18/16 07:40 Polychromasia Not Reportable 11/18/16 07:40 Hypochromasia Not Reportable 11/18/16 07:40 Poikilocytosis 1+ 11/18/16 07:40 Anisocytosis Not Reportable 11/18/16 07:40 Microcytosis Not Reportable 11/18/16 07:40 Macrocytosis Not Reportable 11/18/16 07:40 Spherocytes Not Reportable 11/18/16 07:40 Pappenheimer Bodies Not Reportable 11/18/16 07:40 Sickle Cells Not Reportable 11/18/16 07:40 Target Cells Not Reportable 11/18/16 07:40 Tear Drop Cells Not Reportable 11/18/16 07:40 Ovalocytes Not Reportable 11/18/16 07:40 Helmet Cells Not Reportable 11/18/16 07:40 [place] Bodies Not Reportable 11/18/16 07:40 [place] Rings Not Reportable 11/18/16 07:40 Fe Cells Few 11/18/16 07:40 Bite Cells Not Reportable 11/18/16 07:40 Crenated Cell Few 11/18/16 07:40 Elliptocytes Few 11/18/16 07:40 Acanthocytes (Spur) Not Reportable 11/18/16 07:40 Rouleaux Not Reportable 11/18/16 07:40 Hemoglobin C Crystals Not Reportable 11/18/16 07:40 Schistocytes Not Reportable 11/18/16 07:40 Malaria parasites Not Reportable 11/18/16 07:40 Saeed Bodies Not Reportable 11/18/16 07:40 Hem Pathologist Commnt No 11/18/16 07:40 Sodium 149 mmol/L (137-145) H D 11/18/16 07:40 Potassium 3.3 mmol/L (3.6-5.0) L 11/18/16 07:40 Chloride 113.5 mmol/L (98-107) H 11/18/16 07:40 Carbon Dioxide 23 mmol/L (22-30) 11/18/16 07:40 Anion Gap 16 mmol/L 11/18/16 07:40 BUN 4 mg/dL (7-17) L 11/18/16 07:40 Creatinine 0.8 mg/dL (0.7-1.2) 11/18/16 07:40 Estimated GFR > 60 ml/min 11/18/16 07:40 BUN/Creatinine Ratio 5.00 % 11/18/16 07:40 Glucose 110 mg/dL (65-100) H 11/18/16 07:40 Lactic Acid 1.00 mmol/L (0.7-2.0) 11/17/16 08:11 Calcium 7.9 mg/dL (8.4-10.2) L 11/18/16 07:40 Magnesium 2.10 mg/dL (1.7-2.3) 11/16/16 20:55 Total Bilirubin 1.00 mg/dL (0.1-1.2) 11/18/16 07:40 Direct Bilirubin 1.0 mg/dL (0-0.2) H 11/16/16 20:55 Indirect Bilirubin 0.9 mg/dL 11/16/16 20:55 AST 14 units/L (5-40) 11/18/16 07:40 ALT 35 units/L (7-56) 11/18/16 07:40 Alkaline Phosphatase 134 units/L (35-129) H 11/18/16 07:40 Troponin T < 0.010 ng/mL (0.00-0.029) 11/16/16 20:55 Total Protein 5.9 g/dL (6.3-8.2) L 11/18/16 07:40 Albumin 2.6 g/dL (3.9-5) L 11/18/16 07:40 Albumin/Globulin Ratio 0.8 % 11/18/16 07:40 Lipase 105 units/L (13-60) H 11/16/16 20:55 Urine Color Yellow (Yellow) 11/16/16 23:41 Urine Turbidity Clear (Clear) 11/16/16 23:41 Urine pH 6.0 (5.0-7.0) 11/16/16 23:41 Ur Specific [place] 1.004 (1.003-1.030) 11/16/16 23:41 Urine Protein 30 mg/dl mg/dL (Negative) 11/16/16 23:41 Urine Glucose (UA) Neg mg/dL (Negative) 11/16/16 23:41 Urine Ketones Neg mg/dL (Negative) 11/16/16 23:41 Urine Blood Sm (Negative) 11/16/16 23:41 Urine Nitrite Neg (Negative) 11/16/16 23:41 Ur Reducing Substances Not Reportable 11/16/16 23:41 Urine Bilirubin Neg (Negative) 11/16/16 23:41 Urine Ictotest Not Reportable 11/16/16 23:41 Urine Urobilinogen < 2.0 mg/dL (<2.0) 11/16/16 23:41 Ur Leukocyte Esterase Neg (Negative) 11/16/16 23:41 Urine WBC (Auto) 4.0 /HPF (0.0-6.0) 11/16/16 23:41 Urine RBC (Auto) 2.0 /HPF (0.0-6.0) 11/16/16 23:41 Urine HCG, Qual Negative (Negative) 11/16/16 23:41 - Imaging and Cardiology US - abdomen: image reviewed (No acute pathology)
[2016-11-18] MEDS ORDERED: LOVENOX SUB-Q SCH (22:00)
[2016-11-19] MEDS: PEPCID IV SCH ×3 (01:28→22:04)
[2016-11-19] MEDS: D5NS 1,000 ML IV SCH ×2 (03:45→10:06)
[2016-11-19 06:27] LABS: Hematocrit 32.5 % (30.3-42.9); Mean Corpuscular HGB Conc 34 % (30-34); Mean Corpuscular Hemoglobin 31 pg (28-32); Mean Corpuscular Volume 93 fl (79-97); Platelet Count 216 K/mm3 (140-440); Red Cell Distribution Width 13.8 % (13.2-15.2)
[2016-11-19 06:32] LABS: White Blood Count 21.1 K/mm3 (4.5-11.0)
[2016-11-19 07:44] LABS: Anion Gap 19 mmol/L; BUN/Creatinine Ratio 4.44; Blood Urea Nitrogen 4 mg/dL (7-17); Calcium 8.3 mg/dL (8.4-10.2); Carbon Dioxide 21 mmol/L (22-30); Chloride 120.8 mmol/L (98-107); Glucose 119 mg/dL (65-100); Potassium 3.7 mmol/L (3.6-5.0); Sodium 157 mmol/L (137-145)
--- NOTE | 2016-11-19 08:22 | XRay Report ---
KUB: 11/18/16 17:17 CLINICAL: Followup short segment intussusception identified on CT. Nausea, vomiting and abdominal pain. FINDINGS: No distended large or small bowel. No pneumoperitoneum. Radiopaque objects in the proximal stomach are either food or ingested medication. No tubes or lines. The bones and soft tissues are normal. IMPRESSION: Negative abdomen with no sign of small bowel obstruction.
[2016-11-19] MEDS: LEVAQUIN 750MG/150ML 750 MG/150 ML BAG IV SCH (10:05)
[2016-11-19] MEDS ORDERED: D5W 1,000 ML IV SCH (12:00)
--- NOTE | 2016-11-19 12:41 | Progress Note ---
Assessment and Plan Assessment and plan: 21-year-old female with no significant Past medical history presents to the hospital with continued nausea, vomiting, pain and generalized weakness for 4 days. Symptoms started after eating a cake at a [employer] on 12 November. Patient developed vomiting, hot flashes, and pruritic rash. Patient was seen and evaluated at [facility] on the . She was diagnosed with allergic dermatitis due to ingested food. Patient also had a headache, vomiting, poor PO intolerance, and upper abdominal discomfort at that time. She was discharged on cetirizine, hydroxyzine, and prednisone 20 mg 4 days. Rash has improved. Patient continued to have vomiting poor PO intolerance and body aches. She has not been able to eat or drink much in the last 5 days. Patient complains of frontal headache. She also complains of posterior neck pain, upper abdominal pain, and weight loss. - Patient Problems (1) Intussusception of small bowel Although patient reports no further vomiting overnight and no tenderness, also noted to have improved KUB. Her persistent Lekocytosis is concerning. Will obtain surgical consult (2) Hypernatremia Will change to D5W, monitor sodium levels (3) Dehydration/Hypotension Current Visit: Yes Status: Acute Plan to address problem: IV fluids.Clear liquids as tolerated Give fluid bolus (4) Viral syndrome Current Visit: Yes Status: Acute Plan to address problem: Probable viral sndrome in view of high fever and body aches (5) SIRS (systemic inflammatory response syndrome) Current Visit: Yes Status: Acute Plan to address problem: Clinical picture c/w SIRS.High WBC count. Continue on IV Levaquin for broad spectrum coverage.IV fluids for now. surgical consult (6) Hypokalemia Corrected (7) DVT prophylaxis Current Visit: Yes Status: Acute Plan to address problem: On Lovenox 40 mg sq qd History Interval history: Patient seen and examined today reports nausea with vomiting last night but non today. Patient reports BM last night, she reports no further abdominal pain today, she wants to eat and is asking for regular diet. No further fever reported today. Hospitalist Physical - Physical exam Narrative exam: VITAL SIGNS: Reviewed. GENERAL: The patient appeared well nourished and normally developed. Vital signs as documented. HEAD: No signs of head trauma. EYES: Pupils are equal. Extraocular motions intact. EARS: Hearing grossly intact. MOUTH: Oropharynx is normal. NECK: No adenopathy, no JVD. CHEST: Chest with clear breath sounds bilaterally. No wheezes, rales, or rhonchi. CARDIAC: Regular rate and rhythm. S1 and S2, without murmurs, gallops, or rubs. VASCULAR: No Edema. Peripheral pulses normal and equal in all extremities. ABDOMEN: Soft, without detectable tenderness. No sign of distention. No rebound or guarding, and no masses palpated. Bowel Sounds normal. MUSCULOSKELETAL: Good range of motion of all major joints. Extremities without clubbing, cyanosis or edema. NEUROLOGIC EXAM: Alert and oriented x 3. No focal sensory or strength deficits. Speech normal. Follows commands. PSYCHIATRIC: Mood normal. SKIN: Some noticeable skin tattoo across the back. - Constitutional Vitals: Temp Pulse Resp BP Pulse Ox 98.8 F 85 20 102/74 99 11/19/16 07:00 11/19/16 07:00 11/19/16 07:00 11/19/16 07:00 11/19/16 07:00 General appearance: Present: mild distress, well-nourished Results - Labs CBC & Chem 7: 11/19/16 13:52 11/19/16 06:09 Labs: Laboratory Last Values WBC 21.1 K/mm3 (4.5-11.0) H 11/19/16 06:09 RBC 3.50 M/mm3 (3.65-5.03) L 11/19/16 06:09 Hgb 11.0 gm/dl (10.1-14.3) 11/19/16 06:09 Hct 32.5 % (30.3-42.9) 11/19/16 06:09 MCV 93 fl (79-97) 11/19/16 06:09 MCH 31 pg (28-32) 11/19/16 06:09 MCHC 34 % (30-34) 11/19/16 06:09 RDW 13.8 % (13.2-15.2) 11/19/16 06:09 Plt Count 216 K/mm3 (140-440) 11/19/16 06:09 Lymph % (Auto) 6.8 % (13.4-35.0) L 11/16/16 20:55 [place] % (Auto) 7.8 % (0.0-7.3) H 11/16/16 20:55 Eos % (Auto) 2.2 % (0.0-4.3) 11/16/16 20:55 Baso % (Auto) 0.2 % (0.0-1.8) 11/16/16 20:55 Lymph # 1.3 K/mm3 (1.2-5.4) 11/16/16 20:55 [place] # 1.5 K/mm3 (0.0-0.8) H 11/16/16 20:55 Eos # 0.4 K/mm3 (0.0-0.4) 11/16/16 20:55 Baso # 0.0 K/mm3 (0.0-0.1) 11/16/16 20:55 Add Manual Diff Complete 11/18/16 07:40 Total Counted 100 11/18/16 07:40 Seg Neutrophils % 83.0 % (40.0-70.0) H 11/16/16 20:55 Seg Neuts % (Manual) 83.0 % (40.0-70.0) H 11/18/16 07:40 Band Neutrophils % 0 % 11/18/16 07:40 Lymphocytes % (Manual) 11.0 % (13.4-35.0) L 11/18/16 07:40 Reactive Lymphs % (Man) 0 % 11/18/16 07:40 Monocytes % (Manual) 4.0 % (0.0-7.3) 11/18/16 07:40 Eosinophils % (Manual) 1.0 % (0.0-4.3) 11/18/16 07:40 Basophils % (Manual) 0 % (0.0-1.8) 11/18/16 07:40 Metamyelocytes % 1.0 % 11/18/16 07:40 Myelocytes % 0 % 11/18/16 07:40 Promyelocytes % 0 % 11/18/16 07:40 Blast Cells % 0 % 11/18/16 07:40 Nucleated RBC % Not Reportable 11/18/16 07:40 Seg Neutrophils # 15.8 K/mm3 (1.8-7.7) H 11/16/16 20:55 Seg Neutrophils # Man 19.8 K/mm3 (1.8-7.7) H 11/18/16 07:40 Band Neutrophils # 0.0 K/mm3 11/18/16 07:40 Lymphocytes # (Manual) 2.6 K/mm3 (1.2-5.4) 11/18/16 07:40 Abs React Lymphs (Man) 0.0 K/mm3 11/18/16 07:40 Monocytes # (Manual) 1.0 K/mm3 (0.0-0.8) H 11/18/16 07:40 Eosinophils # (Manual) 0.2 K/mm3 (0.0-0.4) 11/18/16 07:40 Basophils # (Manual) 0.0 K/mm3 (0.0-0.1) 11/18/16 07:40 Metamyelocytes # 0.2 K/mm3 11/18/16 07:40 Myelocytes # 0.0 K/mm3 11/18/16 07:40 Promyelocytes # 0.0 K/mm3 11/18/16 07:40 Blast Cells # 0.0 K/mm3 11/18/16 07:40 WBC Morphology Not Reportable 11/18/16 07:40 Hypersegmented Neuts Not Reportable 11/18/16 07:40 Hyposegmented Neuts Not Reportable 11/18/16 07:40 Hypogranular Neuts Not Reportable 11/18/16 07:40 Smudge Cells Not Reportable 11/18/16 07:40 Toxic Granulation Not Reportable 11/18/16 07:40 Toxic Vacuolation Not Reportable 11/18/16 07:40 Dohle Bodies Not Reportable 11/18/16 07:40 Pelger-Huet Anomaly Not Reportable 11/18/16 07:40 Bob Rods Not Reportable 11/18/16 07:40 Platelet Estimate Consistent w auto 11/18/16 07:40 Clumped Platelets Not Reportable 11/18/16 07:40 Plt Clumps, EDTA Not Reportable 11/18/16 07:40 Large Platelets Not Reportable 11/18/16 07:40 Giant Platelets Not Reportable 11/18/16 07:40 Platelet Satelliting Not Reportable 11/18/16 07:40 Plt Morphology Comment Not Reportable 11/18/16 07:40 RBC Morphology Not Reportable 11/18/16 07:40 Dimorphic RBCs Not Reportable 11/18/16 07:40 Polychromasia Not Reportable 11/18/16 07:40 Hypochromasia Not Reportable 11/18/16 07:40 Poikilocytosis 1+ 11/18/16 07:40 Anisocytosis Not Reportable 11/18/16 07:40 Microcytosis Not Reportable 11/18/16 07:40 Macrocytosis Not Reportable 11/18/16 07:40 Spherocytes Not Reportable 11/18/16 07:40 Pappenheimer Bodies Not Reportable 11/18/16 07:40 Sickle Cells Not Reportable 11/18/16 07:40 Target Cells Not Reportable 11/18/16 07:40 Tear Drop Cells Not Reportable 11/18/16 07:40 Ovalocytes Not Reportable 11/18/16 07:40 Helmet Cells Not Reportable 11/18/16 07:40 [place] Bodies Not Reportable 11/18/16 07:40 [place] Rings Not Reportable 11/18/16 07:40 [place] Cells Few 11/18/16 07:40 Bite Cells Not Reportable 11/18/16 07:40 Crenated Cell Few 11/18/16 07:40 Elliptocytes Few 11/18/16 07:40 Acanthocytes (Spur) Not Reportable 11/18/16 07:40 Rouleaux Not Reportable 11/18/16 07:40 Hemoglobin C Crystals Not Reportable 11/18/16 07:40 Schistocytes Not Reportable 11/18/16 07:40 Malaria parasites Not Reportable 11/18/16 07:40 Saeed Bodies Not Reportable 11/18/16 07:40 Hem Pathologist Commnt No 11/18/16 07:40 Sodium 157 mmol/L (137-145) H D 11/19/16 06:09 Potassium 3.7 mmol/L (3.6-5.0) 11/19/16 06:09 Chloride 120.8 mmol/L (98-107) H 11/19/16 06:09 Carbon Dioxide 21 mmol/L (22-30) L 11/19/16 06:09 Anion Gap 19 mmol/L 11/19/16 06:09 BUN 4 mg/dL (7-17) L 11/19/16 06:09 Creatinine 0.9 mg/dL (0.7-1.2) 11/19/16 06:09 Estimated GFR > 60 ml/min 11/19/16 06:09 BUN/Creatinine Ratio 4.44 % 11/19/16 06:09 Glucose 119 mg/dL (65-100) H 11/19/16 06:09 Lactic Acid 1.00 mmol/L (0.7-2.0) 11/17/16 08:11 Calcium 8.3 mg/dL (8.4-10.2) L 11/19/16 06:09 Magnesium 2.10 mg/dL (1.7-2.3) 11/16/16 20:55 Total Bilirubin 1.00 mg/dL (0.1-1.2) 11/18/16 07:40 Direct Bilirubin 1.0 mg/dL (0-0.2) H 11/16/16 20:55 Indirect Bilirubin 0.9 mg/dL 11/16/16 20:55 AST 14 units/L (5-40) 11/18/16 07:40 ALT 35 units/L (7-56) 11/18/16 07:40 Alkaline Phosphatase 134 units/L (35-129) H 11/18/16 07:40 Troponin T < 0.010 ng/mL (0.00-0.029) 11/16/16 20:55 Total Protein 5.9 g/dL (6.3-8.2) L 11/18/16 07:40 Albumin 2.6 g/dL (3.9-5) L 11/18/16 07:40 Albumin/Globulin Ratio 0.8 % 11/18/16 07:40 Lipase 105 units/L (13-60) H 11/16/16 20:55 Urine Color Yellow (Yellow) 11/16/16 23:41 Urine Turbidity Clear (Clear) 11/16/16 23:41 Urine pH 6.0 (5.0-7.0) 11/16/16 23:41 Ur Specific [place] 1.004 (1.003-1.030) 11/16/16 23:41 Urine Protein 30 mg/dl mg/dL (Negative) 11/16/16 23:41 Urine Glucose (UA) Neg mg/dL (Negative) 11/16/16 23:41 Urine Ketones Neg mg/dL (Negative) 11/16/16 23:41 Urine Blood Sm (Negative) 11/16/16 23:41 Urine Nitrite Neg (Negative) 11/16/16 23:41 Ur Reducing Substances Not Reportable 11/16/16 23:41 Urine Bilirubin Neg (Negative) 11/16/16 23:41 Urine Ictotest Not Reportable 11/16/16 23:41 Urine Urobilinogen < 2.0 mg/dL (<2.0) 11/16/16 23:41 Ur Leukocyte Esterase Neg (Negative) 11/16/16 23:41 Urine WBC (Auto) 4.0 /HPF (0.0-6.0) 11/16/16 23:41 Urine RBC (Auto) 2.0 /HPF (0.0-6.0) 11/16/16 23:41 Urine HCG, Qual Negative (Negative) 11/16/16 23:41 - Imaging and Cardiology Abdominal x-ray: report reviewed (shows no dilatation )
--- NOTE | 2016-11-19 13:25 | Consultation ---
Past History Past Medical History: No medical history Past Surgical History: No surgical history Social history: no significant social history, lives with family Family history: no significant family history Medications and Allergies Allergies Allergy/AdvReac Type Severity Reaction Status Date / Time No Known Allergies Allergy Verified 11/16/16 20:48 Home Medications Medication Instructions Recorded Confirmed Last Taken Type No Known Home Medications [No 11/17/16 11/17/16 Unknown History Reported Home Medications] Active Meds: Active Medications Acetaminophen (Tylenol) 650 mg PO Q4H PRN PRN Reason: Pain MILD(1-3)/Fever >100.5/BYRNE Last Admin: 11/18/16 00:53 Dose: 650 mg Bisacodyl (Dulcolax) 10 mg DE QDAY PRN PRN Reason: Constipation unrelieved by MOM Enoxaparin Sodium (Lovenox) 40 mg SUB-Q QDAY@2200 [facility] Last Admin: 11/19/16 01:27 Dose: Not Given Famotidine (Pepcid) 20 mg IV BID [facility] Last Admin: 11/19/16 10:06 Dose: 20 mg Hydromorphone HCl (Dilaudid) 1 mg IV Q3H PRN PRN Reason: Pain , Severe (7-10) Last Admin: 11/18/16 22:31 Dose: 1 mg Levofloxacin/Dextrose (Levaquin 750mg/150ml) 750 mg in 150 mls @ 100 mls/hr IV Q24HR [facility] PRN Reason: Protocol Last Admin: 11/19/16 10:05 Dose: 100 mls/hr Dextrose (D5w) 1,000 mls @ 125 mls/hr IV DIRECT [facility] Last Admin: 11/19/16 12:20 Dose: 125 mls/hr Magnesium Hydroxide (Milk Of Magnesia) 30 ml PO Q4H PRN PRN Reason: Constipation Last Admin: 11/19/16 11:18 Dose: 30 ml Ondansetron HCl (Zofran) 4 mg IV Q8H PRN PRN Reason: N/V unrelieved by Reglan Last Admin: 11/18/16 22:30 Dose: 4 mg Oxycodone/Acetaminophen (Percocet 5/325) 1 tab PO Q6H PRN PRN Reason: Pain, Moderate (4-6) Exam Vital Signs Temp Pulse Resp BP Pulse Ox 98 F 120 H 16 92/57 100 11/16/16 20:49 11/16/16 20:49 11/16/16 20:49 11/16/16 20:49 11/16/16 20:49 Results - Labs 11/19/16 06:09 11/19/16 06:09 Abnormal lab results 11/19/16 11/19/16 Range/Units 06:09 06:09 WBC 21.1 H (4.5-11.0) K/mm3 RBC 3.50 L (3.65-5.03) M/mm3 Sodium 157 H D (137-145) mmol/L Chloride 120.8 H (98-107) mmol/L Carbon Dioxide 21 L (22-30) mmol/L BUN 4 L (7-17) mg/dL Glucose 119 H (65-100) mg/dL Calcium 8.3 L (8.4-10.2) mg/dL Diabetes panel 11/19/16 Range/Units 06:09 Sodium 157 H D (137-145) mmol/L Potassium 3.7 (3.6-5.0) mmol/L Chloride 120.8 H (98-107) mmol/L Carbon Dioxide 21 L (22-30) mmol/L BUN 4 L (7-17) mg/dL Creatinine 0.9 (0.7-1.2) mg/dL Glucose 119 H (65-100) mg/dL Calcium 8.3 L (8.4-10.2) mg/dL Calcium panel 11/19/16 Range/Units 06:09 Calcium 8.3 L (8.4-10.2) mg/dL Pituitary panel 11/19/16 Range/Units 06:09 Sodium 157 H D (137-145) mmol/L Potassium 3.7 (3.6-5.0) mmol/L Chloride 120.8 H (98-107) mmol/L Carbon Dioxide 21 L (22-30) mmol/L BUN 4 L (7-17) mg/dL Creatinine 0.9 (0.7-1.2) mg/dL Glucose 119 H (65-100) mg/dL Calcium 8.3 L (8.4-10.2) mg/dL Adrenal panel 11/19/16 Range/Units 06:09 Sodium 157 H D (137-145) mmol/L Potassium 3.7 (3.6-5.0) mmol/L Chloride 120.8 H (98-107) mmol/L Carbon Dioxide 21 L (22-30) mmol/L BUN 4 L (7-17) mg/dL Creatinine 0.9 (0.7-1.2) mg/dL Glucose 119 H (65-100) mg/dL Calcium 8.3 L (8.4-10.2) mg/dL Assessment and Plan 11/17/16 Chief complaint: CC:Nausea Vomiting and Abdominal pain for 5 days. Rash for 2 days. History of present illness: CHEVAK: 21-year-old female with no significant Past medical history presents to the hospital with continued nausea, vomiting, pain and generalized weakness for 4 days. Symptoms started after eating a cake at a [employer] on 12 November. Patient developed vomiting, hot flashes, and pruritic rash. Patient was seen and evaluated at [facility] on the . She was diagnosed with allergic dermatitis due to ingested food. Patient also had a headache, vomiting, poor PO intolerance, and upper abdominal discomfort at that time. She was discharged on cetirizine, hydroxyzine, and prednisone 20 mg 4 days. Rash has improved. Patient continued to have vomitingpoor PO intolerance and body aches. She has not been able to eat or drink much in the last 5 days. Patient complains of frontal headache. She also complains of posterior neck pain, upper abdominal pain, and weight loss. Pt still c/o abd pain & nausea. Abd distended. slightly tender CT abd - small bowel intussuseption with proximal dilatation. elevateds wbc imp - non resolving intussuseption. symptomatic rec - emergency expl lap possible bowel resection. proc risks & compl reviewed with pt & family will proceed Selected Entries 11/19/16 07:00 Temperature 98.8 F Pulse Rate [ 85 Left Radial] Respiratory 20 Rate Blood Pressure 102/74 [Left Arm] Laboratory Tests 11/19/16 11/19/16 06:09 06:09 WBC 21.1 H Hgb 11.0 Hct 32.5 Sodium 157 H D Potassium 3.7 Chloride 120.8 H BUN 4 L Creatinine 0.9
[2016-11-19 14:12] LABS: Hematocrit 35.4 % (30.3-42.9); Hemoglobin 11.6 gm/dl (10.1-14.3); Mean Corpuscular HGB Conc 33 % (30-34); Mean Corpuscular Hemoglobin 31 pg (28-32); Mean Corpuscular Volume 95 fl (79-97); Platelet Count 241 K/mm3 (140-440); Red Blood Count 3.75 M/mm3 (3.65-5.03); Red Cell Distribution Width 14.3 % (13.2-15.2)
[2016-11-19 14:17] LABS: White Blood Count 21.4 K/mm3 (4.5-11.0)
[2016-11-19 14:58] LABS: Basophils % (Manual) 0 % (0.0-1.8); Blastocytes % (Manual) 0 %
[2016-11-19 14:59] LABS: Diff Status Complete; RBC Morphology Normal
[2016-11-19] MEDS ORDERED: XYLOCAINE MPF 2% ONE (15:00)
[2016-11-19] MEDS ORDERED: DIPRIVAN 10 MG/ML IV ONE (15:20)
[2016-11-19] MEDS ORDERED: DILAUDID ONE ×2 (15:20→16:45)
[2016-11-19] MEDS ORDERED: ROBINUL ONE ×3 (15:22→15:28)
[2016-11-19] MEDS ORDERED: NACL BACTERIOSTATIC INFILTRATI ONE (15:24)
[2016-11-19] MEDS ORDERED: QUELICIN ONE (15:27)
[2016-11-19] MEDS ORDERED: ZEMURON IV ONE (15:27)
[2016-11-19] MEDS ORDERED: DECADRON ONE (15:28)
[2016-11-19] MEDS ORDERED: ZOFRAN ONE (15:28)
[2016-11-19] MEDS ORDERED: NEOSTIGMINE ONE (15:28)
--- NOTE | 2016-11-19 15:43 | Anesthesia Day of Surgery ---
Anesthesia Day of Surgery - Day of Surgery Patient Examined: Yes Patient H&P Reviewed: Yes Patient is NPO: Yes (popsicle at 12:00)
--- NOTE | 2016-11-19 15:44 | Anesthesia Consultation ---
Anesthesia Consult and Med Hx Date of service: 11/19/16 - Airway Anesthetic Teeth Evaluation: Good (braces) ROM Head & Neck: Adequate Mental/Hyoid Distance: Adequate Mallampati Class: Class II Intubation Access Assessment: Probably Good - Pulmonary Exam CTA: Yes - Cardiac Exam Cardiac Exam: RRR - Pre-Operative Health Status ASA Pre-Surgery Classification: ASA2 Proposed Anesthetic Plan: General - Pulmonary Hx Smoking: Yes Hx Asthma: No COPD: No Hx Sleep Apnea: No - Cardiovascular System Hx Hypertension: No - Central Nervous System Hx Psychiatric Problems: No - Other Systems Hx Substance Use: Yes (marijuana occassionally) Hx Cancer: No
[2016-11-19] MEDS ORDERED: LACTATED RINGERS 1,000 ML IV SCH (16:00)
[2016-11-19] MEDS ORDERED: VERSED IV NR (16:00)
[2016-11-19] MEDS ORDERED: NACL 0.9% IR ONE (16:07)
[2016-11-19] MEDS ORDERED: MARCAINE-EPI/PF 0.5%-1:200,000 INFILTRATI ONE ×2 (16:07→17:09)
[2016-11-19] MEDS ORDERED: ANCEF ONE ×2 (16:42)
[2016-11-19] MEDS ORDERED: BREVIBLOC IV ONE (16:45)
[2016-11-19] MEDS ORDERED: LACTATED RINGERS 2,000 ML ONE (17:02)
--- NOTE | 2016-11-19 17:27 | Post Operative Note ---
Pre-op diagnosis: small bowel obst secondary to intussuseption Post-op diagnosis: same Findings: spontaneously reduced intussuseption. transition point noted with proximal slightly thickened serosa and engorged mesenteric vessels. distal to this, serosa is smooth and no engorgement noted. This area was carefully palpated no intrinsic polyps or other intraluminal pathology noted. incidental appendectomy performed No other gross intra abd pathology noted. Anesthesia: GETA Surgeon: KRISTAL OSORIO Production Coordinator: ANTOINETTE BELTRAN Estimated blood loss: none Pathology: none Condition: stable Disposition: floor
[2016-11-19] MEDS: DILAUDID IV PRN ×3 (18:00→22:06)
--- NOTE | 2016-11-19 18:06 | Post Anesthesia Evaluation ---
- Post Anesthesia Evaluation Patient Participated: Yes Airway Patent: Yes Stable Respiratory Function: Yes Nausea/Vomiting: No Temp > 96.8F: Yes Pain Manageable: Yes Adequeate Hydration: Yes Anesthesia Complications: No Block Receding Appropriately: Not Applicable Patient on Ventilator: No
[2016-11-19] MEDS: LACTATED RINGERS 1,000 ML IV SCH (22:03)
[2016-11-20] MEDS: DILAUDID IV PRN ×5 (03:38→21:19)
[2016-11-20 06:00] LABS: Hematocrit 30.5 % (30.3-42.9); Hemoglobin 10.3 gm/dl (10.1-14.3); Mean Corpuscular HGB Conc 34 % (30-34); Mean Corpuscular Hemoglobin 31 pg (28-32); Mean Corpuscular Volume 92 fl (79-97); Platelet Count 227 K/mm3 (140-440); Red Cell Distribution Width 14.3 % (13.2-15.2)
[2016-11-20 06:03] LABS: White Blood Count 24.1 K/mm3 (4.5-11.0)
[2016-11-20 06:12] LABS: Alanine Aminotransferase 21 units/L (7-56); Albumin 2.5 g/dL (3.9-5); Albumin/Globulin Ratio 0.7 %; Alkaline Phosphatase 115 units/L (35-129); Anion Gap 16 mmol/L; BUN/Creatinine Ratio 11.42; Blood Urea Nitrogen 8 mg/dL (7-17); Calcium 8.3 mg/dL (8.4-10.2); Carbon Dioxide 27 mmol/L (22-30); Chloride 114.8 mmol/L (98-107); Glucose 105 mg/dL (65-100); Potassium 3.6 mmol/L (3.6-5.0); Sodium 154 mmol/L (137-145)
[2016-11-20 06:55] LABS: Basophils % (Manual) 0 % (0.0-1.8); Blastocytes % (Manual) 0 %; Diff Status Complete; Eosinophils % (Manual) 0 % (0.0-4.3); Platelet Estimate Consistent w Auto; RBC Morphology Normal
[2016-11-20] MEDS: LACTATED RINGERS 1,000 ML IV SCH (07:09)
[2016-11-20] MEDS: LEVAQUIN 750MG/150ML 750 MG/150 ML BAG IV SCH (10:09)
[2016-11-20] MEDS: PEPCID IV SCH ×2 (10:12→22:02)
--- NOTE | 2016-11-20 12:45 | Progress Note ---
Assessment and Plan Assessment and plan: Intussusception of small bowel - Status post exploratory laparotomy - Patient didn't have any perforation, or gangrene of the bowel - Surgery is following her - Patient is nothing by mouth, didn't pass gas SIRS - Continue Levaquin Hypernatremia/dehydration - Patient was on Ringer's lactated, now change it to D5 half-normal saline - Sodium is 154 this morning - We'll follow BMP tomorrow Cough -Chest x-ray DVT prophylaxis -Lovenox Disposition -Continue inpatient care History Interval history: Patient was seen and evaluated this morning, status post exploratory laparotomy. Patient is complaining cough but denied fevers chills. Hospitalist Physical - Physical exam Narrative exam: Not in cardiopulmonary distress. The patient appeared well nourished and normally developed. Vital signs as documented. Head exam is unremarkable. No scleral icterus . Neck is without jugular venous distension, thyromegaly, or carotid bruits. Lungs are clear to auscultation. Cardiac exam reveals regular rate and Rhythm. First and second heart sounds normal. No murmurs, rubs or gallops. Abdominal exam reveals midline incision with clean dressing. No bowel movements appreciated. Extremities are nonedematous and both femoral and pedal pulses are normal. NCQA SPECIALIST: Alert and oriented 3. No focal weakness. - Constitutional Vitals: Temp Pulse Resp BP Pulse Ox 98.4 F 72 18 107/67 100 11/20/16 08:00 11/20/16 08:00 11/20/16 08:00 11/20/16 08:00 11/20/16 08:00 General appearance: Present: mild distress, well-nourished Results - Labs CBC & Chem 7: 11/20/16 05:15 11/20/16 05:15 Labs: Laboratory Last Values WBC 24.1 K/mm3 (4.5-11.0) H 11/20/16 05:15 RBC 3.30 M/mm3 (3.65-5.03) L 11/20/16 05:15 Hgb 10.3 gm/dl (10.1-14.3) 11/20/16 05:15 Hct 30.5 % (30.3-42.9) 11/20/16 05:15 MCV 92 fl (79-97) D 11/20/16 05:15 MCH 31 pg (28-32) 11/20/16 05:15 MCHC 34 % (30-34) 11/20/16 05:15 RDW 14.3 % (13.2-15.2) 11/20/16 05:15 Plt Count 227 K/mm3 (140-440) 11/20/16 05:15 Lymph % (Auto) 6.8 % (13.4-35.0) L 11/16/16 20:55 [place] % (Auto) 7.8 % (0.0-7.3) H 11/16/16 20:55 Eos % (Auto) 2.2 % (0.0-4.3) 11/16/16 20:55 Baso % (Auto) 0.2 % (0.0-1.8) 11/16/16 20:55 Lymph # 1.3 K/mm3 (1.2-5.4) 11/16/16 20:55 [place] # 1.5 K/mm3 (0.0-0.8) H 11/16/16 20:55 Eos # 0.4 K/mm3 (0.0-0.4) 11/16/16 20:55 Baso # 0.0 K/mm3 (0.0-0.1) 11/16/16 20:55 Add Manual Diff Complete 11/20/16 05:15 Total Counted 100 11/20/16 05:15 Seg Neutrophils % Compression Molding Machine Setter 11/20/16 05:15 Seg Neuts % (Manual) 80.0 % (40.0-70.0) H 11/20/16 05:15 Band Neutrophils % 9.0 % 11/20/16 05:15 Lymphocytes % (Manual) 3.0 % (13.4-35.0) L 11/20/16 05:15 Reactive Lymphs % (Man) 0 % 11/20/16 05:15 Monocytes % (Manual) 6.0 % (0.0-7.3) 11/20/16 05:15 Eosinophils % (Manual) 0 % (0.0-4.3) 11/20/16 05:15 Basophils % (Manual) 0 % (0.0-1.8) 11/20/16 05:15 Metamyelocytes % 2.0 % 11/20/16 05:15 Myelocytes % 0 % 11/20/16 05:15 Promyelocytes % 0 % 11/20/16 05:15 Blast Cells % 0 % 11/20/16 05:15 Nucleated RBC % Not Reportable 11/20/16 05:15 Seg Neutrophils # 15.8 K/mm3 (1.8-7.7) H 11/16/16 20:55 Seg Neutrophils # Man 19.3 K/mm3 (1.8-7.7) H 11/20/16 05:15 Band Neutrophils # 2.2 K/mm3 11/20/16 05:15 Lymphocytes # (Manual) 0.7 K/mm3 (1.2-5.4) L 11/20/16 05:15 Abs React Lymphs (Man) 0.0 K/mm3 11/20/16 05:15 Monocytes # (Manual) 1.4 K/mm3 (0.0-0.8) H 11/20/16 05:15 Eosinophils # (Manual) 0.0 K/mm3 (0.0-0.4) 11/20/16 05:15 Basophils # (Manual) 0.0 K/mm3 (0.0-0.1) 11/20/16 05:15 Metamyelocytes # 0.5 K/mm3 11/20/16 05:15 Myelocytes # 0.0 K/mm3 11/20/16 05:15 Promyelocytes # 0.0 K/mm3 11/20/16 05:15 Blast Cells # 0.0 K/mm3 11/20/16 05:15 WBC Morphology Not Reportable 11/20/16 05:15 Hypersegmented Neuts Not Reportable 11/20/16 05:15 Hyposegmented Neuts Not Reportable 11/20/16 05:15 Hypogranular Neuts Not Reportable 11/20/16 05:15 Smudge Cells Not Reportable 11/20/16 05:15 Toxic Granulation Not Reportable 11/20/16 05:15 Toxic Vacuolation Not Reportable 11/20/16 05:15 Dohle Bodies Not Reportable 11/20/16 05:15 Pelger-Huet Anomaly Not Reportable 11/20/16 05:15 Bob Rods Not Reportable 11/20/16 05:15 Platelet Estimate Consistent w auto 11/20/16 05:15 Clumped Platelets Not Reportable 11/20/16 05:15 Plt Clumps, EDTA Not Reportable 11/20/16 05:15 Large Platelets Not Reportable 11/20/16 05:15 Giant Platelets Not Reportable 11/20/16 05:15 Platelet Satelliting Not Reportable 11/20/16 05:15 Plt Morphology Comment Not Reportable 11/20/16 05:15 RBC Morphology Normal 11/20/16 05:15 Dimorphic RBCs Not Reportable 11/20/16 05:15 Polychromasia Not Reportable 11/20/16 05:15 Hypochromasia Not Reportable 11/20/16 05:15 Poikilocytosis Not Reportable 11/20/16 05:15 Anisocytosis Not Reportable 11/20/16 05:15 Microcytosis Not Reportable 11/20/16 05:15 Macrocytosis Not Reportable 11/20/16 05:15 Spherocytes Not Reportable 11/20/16 05:15 Pappenheimer Bodies Not Reportable 11/20/16 05:15 Sickle Cells Not Reportable 11/20/16 05:15 Target Cells Not Reportable 11/20/16 05:15 Tear Drop Cells Not Reportable 11/20/16 05:15 Ovalocytes Not Reportable 11/20/16 05:15 Helmet Cells Not Reportable 11/20/16 05:15 [place] Bodies Not Reportable 11/20/16 05:15 [place] Rings Not Reportable 11/20/16 05:15 Fe Cells Not Reportable 11/20/16 05:15 Bite Cells Not Reportable 11/20/16 05:15 Crenated Cell Not Reportable 11/20/16 05:15 Elliptocytes Not Reportable 11/20/16 05:15 Acanthocytes (Spur) Not Reportable 11/20/16 05:15 Rouleaux Not Reportable 11/20/16 05:15 Hemoglobin C Crystals Not Reportable 11/20/16 05:15 Schistocytes Not Reportable 11/20/16 05:15 Malaria parasites Not Reportable 11/20/16 05:15 Saeed Bodies Not Reportable 11/20/16 05:15 Hem Pathologist Commnt No 11/20/16 05:15 Sodium 154 mmol/L (137-145) H 11/20/16 05:15 Potassium 3.6 mmol/L (3.6-5.0) 11/20/16 05:15 Chloride 114.8 mmol/L (98-107) H 11/20/16 05:15 Carbon Dioxide 27 mmol/L (22-30) 11/20/16 05:15 Anion Gap 16 mmol/L 11/20/16 05:15 BUN 8 mg/dL (7-17) 11/20/16 05:15 Creatinine 0.7 mg/dL (0.7-1.2) 11/20/16 05:15 Estimated GFR > 60 ml/min 11/20/16 05:15 BUN/Creatinine Ratio 11.42 % 11/20/16 05:15 Glucose 105 mg/dL (65-100) H 11/20/16 05:15 Lactic Acid 1.80 mmol/L (0.7-2.0) 11/19/16 13:52 Calcium 8.3 mg/dL (8.4-10.2) L 11/20/16 05:15 Magnesium 2.10 mg/dL (1.7-2.3) 11/16/16 20:55 Total Bilirubin 0.60 mg/dL (0.1-1.2) 11/20/16 05:15 Direct Bilirubin 1.0 mg/dL (0-0.2) H 11/16/16 20:55 Indirect Bilirubin 0.9 mg/dL 11/16/16 20:55 AST 17 units/L (5-40) 11/20/16 05:15 ALT 21 units/L (7-56) 11/20/16 05:15 Alkaline Phosphatase 115 units/L (35-129) 11/20/16 05:15 Troponin T < 0.010 ng/mL (0.00-0.029) 11/16/16 20:55 Total Protein 6.0 g/dL (6.3-8.2) L 11/20/16 05:15 Albumin 2.5 g/dL (3.9-5) L 11/20/16 05:15 Albumin/Globulin Ratio 0.7 % 11/20/16 05:15 Lipase 105 units/L (13-60) H 11/16/16 20:55 HCG, Qual Negative (Negative) 11/19/16 13:52 Urine Color Yellow (Yellow) 11/16/16 23:41 Urine Turbidity Clear (Clear) 11/16/16 23:41 Urine pH 6.0 (5.0-7.0) 11/16/16 23:41 Ur Specific [place] 1.004 (1.003-1.030) 11/16/16 23:41 Urine Protein 30 mg/dl mg/dL (Negative) 11/16/16 23:41 Urine Glucose (UA) Neg mg/dL (Negative) 11/16/16 23:41 Urine Ketones Neg mg/dL (Negative) 11/16/16 23:41 Urine Blood Sm (Negative) 11/16/16 23:41 Urine Nitrite Neg (Negative) 11/16/16 23:41 Ur Reducing Substances Not Reportable 11/16/16 23:41 Urine Bilirubin Neg (Negative) 11/16/16 23:41 Urine Ictotest Not Reportable 11/16/16 23:41 Urine Urobilinogen < 2.0 mg/dL (<2.0) 11/16/16 23:41 Ur Leukocyte Esterase Neg (Negative) 11/16/16 23:41 Urine WBC (Auto) 4.0 /HPF (0.0-6.0) 11/16/16 23:41 Urine RBC (Auto) 2.0 /HPF (0.0-6.0) 11/16/16 23:41 Urine HCG, Qual Negative (Negative) 11/16/16 23:41 Blood Type O POSITIVE 11/19/16 13:35 Antibody Screen TNR 11/19/16 13:35 MARISSA Antibody Screen Negative 11/19/16 13:35
--- NOTE | 2016-11-20 13:28 | XRay Report ---
AP CHEST: HISTORY: Cough AP view of the chest demonstrates a normal mediastinal and cardiac contour with clear lungs and normal bony and soft tissue structures. IMPRESSION: No acute cardiopulmonary process appreciated.
[2016-11-20] MEDS: D5/0.45NS 2,000 ML IV SCH ×2 (13:33→21:20)
--- NOTE | 2016-11-20 14:12 | Progress Note ---
Assessment and Plan POD #1 Pt overall feeling well. neg flatus Abd flat, soft. neg BS elevated wbc secondary to ? High NaCl - change to D5 1/2 stable monitor wbc (afebrile) ambulation Selected Entries 11/20/16 08:00 Temperature 98.4 F Pulse Rate [ 72 Left Radial] Respiratory 18 Rate Blood Pressure 107/67 [Left Arm] Laboratory Tests 11/20/16 11/20/16 05:15 05:15 WBC 24.1 H Hgb 10.3 Hct 30.5 Sodium 154 H Potassium 3.6 Chloride 114.8 H Anion Gap 16 BUN 8 Objective Vital Signs - 12hr 11/20/16 11/20/16 04:00 08:00 Temperature 98.4 F 98.4 F Pulse Rate [ 65 72 Left Radial] Respiratory 16 18 Rate Blood Pressure 106/63 107/67 [Left Arm] O2 Sat by Pulse 100 Oximetry - Labs 11/20/16 05:15 11/20/16 05:15 Diabetes panel 11/20/16 Range/Units 05:15 Sodium 154 H (137-145) mmol/L Potassium 3.6 (3.6-5.0) mmol/L Chloride 114.8 H (98-107) mmol/L Carbon Dioxide 27 (22-30) mmol/L BUN 8 (7-17) mg/dL Creatinine 0.7 (0.7-1.2) mg/dL Glucose 105 H (65-100) mg/dL Calcium 8.3 L (8.4-10.2) mg/dL AST 17 (5-40) units/L ALT 21 (7-56) units/L Alkaline Phosphatase 115 (35-129) units/L Total Protein 6.0 L (6.3-8.2) g/dL Albumin 2.5 L (3.9-5) g/dL Calcium panel 11/20/16 Range/Units 05:15 Calcium 8.3 L (8.4-10.2) mg/dL Albumin 2.5 L (3.9-5) g/dL Pituitary panel 11/20/16 Range/Units 05:15 Sodium 154 H (137-145) mmol/L Potassium 3.6 (3.6-5.0) mmol/L Chloride 114.8 H (98-107) mmol/L Carbon Dioxide 27 (22-30) mmol/L BUN 8 (7-17) mg/dL Creatinine 0.7 (0.7-1.2) mg/dL Glucose 105 H (65-100) mg/dL Calcium 8.3 L (8.4-10.2) mg/dL Adrenal panel 11/20/16 Range/Units 05:15 Sodium 154 H (137-145) mmol/L Potassium 3.6 (3.6-5.0) mmol/L Chloride 114.8 H (98-107) mmol/L Carbon Dioxide 27 (22-30) mmol/L BUN 8 (7-17) mg/dL Creatinine 0.7 (0.7-1.2) mg/dL Glucose 105 H (65-100) mg/dL Calcium 8.3 L (8.4-10.2) mg/dL Total Bilirubin 0.60 (0.1-1.2) mg/dL AST 17 (5-40) units/L ALT 21 (7-56) units/L Alkaline Phosphatase 115 (35-129) units/L Total Protein 6.0 L (6.3-8.2) g/dL Albumin 2.5 L (3.9-5) g/dL
[2016-11-20] MEDS ORDERED: ROBITUSSIN PO PRN (17:36)
[2016-11-20] MEDS: ZOFRAN IV PRN (18:30)
[2016-11-21] MEDS: DILAUDID IV PRN ×4 (00:34→20:08)
[2016-11-21 05:13] LABS: Basophils % (Auto) 0.1 % (0.0-1.8); Eosinophils % (Auto) 2.4 % (0.0-4.3); Hematocrit 29.8 % (30.3-42.9); Mean Corpuscular HGB Conc 34 % (30-34); Mean Corpuscular Hemoglobin 31 pg (28-32); Mean Corpuscular Volume 93 fl (79-97); Platelet Count 214 K/mm3 (140-440); Red Blood Count 3.19 M/mm3 (3.65-5.03); Red Cell Distribution Width 14.3 % (13.2-15.2); White Blood Count 17.7 K/mm3 (4.5-11.0)
[2016-11-21 05:27] LABS: Anion Gap 15 mmol/L; BUN/Creatinine Ratio 11.42; Blood Urea Nitrogen 8 mg/dL (7-17); Calcium 7.9 mg/dL (8.4-10.2); Carbon Dioxide 25 mmol/L (22-30); Chloride 110.2 mmol/L (98-107); Glucose 116 mg/dL (65-100); Sodium 147 mmol/L (137-145)
[2016-11-21] MEDS: LEVAQUIN 750MG/150ML 750 MG/150 ML BAG IV SCH (10:25)
[2016-11-21] MEDS: PEPCID IV SCH ×2 (10:26→21:01)
[2016-11-21] MEDS: ZOFRAN IV PRN (12:27)
--- NOTE | 2016-11-21 12:39 | Progress Note ---
Assessment and Plan Assessment and plan: Intussusception of small bowel - Status post exploratory laparotomy - Patient didn't have any perforation, or gangrene of the bowel - Surgery is following her Bronchitis - Patient has cough which is productive of grayish sputum, CXR is negative - Continue Levaquin Hypernatremia/dehydration - Patient is on D5 half-normal saline - Sodium is trending down from 154 to 147 this morning Nutrition - Per surgery, patient passed gas but no stool - Still NPO - Advise to ambulate DVT prophylaxis -Lovenox Disposition -Continue inpatient care History Interval history: Patient was seen and evaluated this morning, status post exploratory laparotomy. Patient is complaining cough productive of grayish sputum but denied fevers chills. Hospitalist Physical - Physical exam Narrative exam: Not in cardiopulmonary distress. The patient appeared well nourished and normally developed. Vital signs as documented. Head exam is unremarkable. No scleral icterus . Neck is without jugular venous distension, thyromegaly, or carotid bruits. Lungs are clear to auscultation. Cardiac exam reveals regular rate and Rhythm. First and second heart sounds normal. No murmurs, rubs or gallops. Abdominal exam reveals midline incision with clean dressing. No bowel movements appreciated. Extremities are nonedematous and both femoral and pedal pulses are normal. WOOL SAMPLER: Alert and oriented 3. No focal weakness. - Constitutional Vitals: Temp Pulse Resp BP Pulse Ox 98.8 F 78 16 112/81 97 11/21/16 08:20 11/21/16 08:20 11/21/16 08:20 11/21/16 08:20 11/21/16 08:20 General appearance: Present: mild distress, well-nourished Results - Labs CBC & Chem 7: 11/21/16 04:31 11/21/16 04:31 Labs: Laboratory Last Values WBC 17.7 K/mm3 (4.5-11.0) H 11/21/16 04:31 RBC 3.19 M/mm3 (3.65-5.03) L 11/21/16 04:31 Hgb 10.0 gm/dl (10.1-14.3) L 11/21/16 04:31 Hct 29.8 % (30.3-42.9) L 11/21/16 04:31 MCV 93 fl (79-97) 11/21/16 04:31 MCH 31 pg (28-32) 11/21/16 04:31 MCHC 34 % (30-34) 11/21/16 04:31 RDW 14.3 % (13.2-15.2) 11/21/16 04:31 Plt Count 214 K/mm3 (140-440) 11/21/16 04:31 Lymph % (Auto) 6.0 % (13.4-35.0) L 11/21/16 04:31 [place] % (Auto) 9.1 % (0.0-7.3) H 11/21/16 04:31 Eos % (Auto) 2.4 % (0.0-4.3) 11/21/16 04:31 Baso % (Auto) 0.1 % (0.0-1.8) 11/21/16 04:31 Lymph # 1.1 K/mm3 (1.2-5.4) L 11/21/16 04:31 [place] # 1.6 K/mm3 (0.0-0.8) H 11/21/16 04:31 Eos # 0.4 K/mm3 (0.0-0.4) 11/21/16 04:31 Baso # 0.0 K/mm3 (0.0-0.1) 11/21/16 04:31 Add Manual Diff Complete 11/20/16 05:15 Total Counted 100 11/20/16 05:15 Seg Neutrophils % 82.4 % (40.0-70.0) H 11/21/16 04:31 Seg Neuts % (Manual) 80.0 % (40.0-70.0) H 11/20/16 05:15 Band Neutrophils % 9.0 % 11/20/16 05:15 Lymphocytes % (Manual) 3.0 % (13.4-35.0) L 11/20/16 05:15 Reactive Lymphs % (Man) 0 % 11/20/16 05:15 Monocytes % (Manual) 6.0 % (0.0-7.3) 11/20/16 05:15 Eosinophils % (Manual) 0 % (0.0-4.3) 11/20/16 05:15 Basophils % (Manual) 0 % (0.0-1.8) 11/20/16 05:15 Metamyelocytes % 2.0 % 11/20/16 05:15 Myelocytes % 0 % 11/20/16 05:15 Promyelocytes % 0 % 11/20/16 05:15 Blast Cells % 0 % 11/20/16 05:15 Nucleated RBC % Not Reportable 11/20/16 05:15 Seg Neutrophils # 14.6 K/mm3 (1.8-7.7) H 11/21/16 04:31 Seg Neutrophils # Man 19.3 K/mm3 (1.8-7.7) H 11/20/16 05:15 Band Neutrophils # 2.2 K/mm3 11/20/16 05:15 Lymphocytes # (Manual) 0.7 K/mm3 (1.2-5.4) L 11/20/16 05:15 Abs React Lymphs (Man) 0.0 K/mm3 11/20/16 05:15 Monocytes # (Manual) 1.4 K/mm3 (0.0-0.8) H 11/20/16 05:15 Eosinophils # (Manual) 0.0 K/mm3 (0.0-0.4) 11/20/16 05:15 Basophils # (Manual) 0.0 K/mm3 (0.0-0.1) 11/20/16 05:15 Metamyelocytes # 0.5 K/mm3 11/20/16 05:15 Myelocytes # 0.0 K/mm3 11/20/16 05:15 Promyelocytes # 0.0 K/mm3 11/20/16 05:15 Blast Cells # 0.0 K/mm3 11/20/16 05:15 WBC Morphology Not Reportable 11/20/16 05:15 Hypersegmented Neuts Not Reportable 11/20/16 05:15 Hyposegmented Neuts Not Reportable 11/20/16 05:15 Hypogranular Neuts Not Reportable 11/20/16 05:15 Smudge Cells Not Reportable 11/20/16 05:15 Toxic Granulation Not Reportable 11/20/16 05:15 Toxic Vacuolation Not Reportable 11/20/16 05:15 Dohle Bodies Not Reportable 11/20/16 05:15 Pelger-Huet Anomaly Not Reportable 11/20/16 05:15 Bob Rods Not Reportable 11/20/16 05:15 Platelet Estimate Consistent w auto 11/20/16 05:15 Clumped Platelets Not Reportable 11/20/16 05:15 Plt Clumps, EDTA Not Reportable 11/20/16 05:15 Large Platelets Not Reportable 11/20/16 05:15 Giant Platelets Not Reportable 11/20/16 05:15 Platelet Satelliting Not Reportable 11/20/16 05:15 Plt Morphology Comment Not Reportable 11/20/16 05:15 RBC Morphology Normal 11/20/16 05:15 Dimorphic RBCs Not Reportable 11/20/16 05:15 Polychromasia Not Reportable 11/20/16 05:15 Hypochromasia Not Reportable 11/20/16 05:15 Poikilocytosis Not Reportable 11/20/16 05:15 Anisocytosis Not Reportable 11/20/16 05:15 Microcytosis Not Reportable 11/20/16 05:15 Macrocytosis Not Reportable 11/20/16 05:15 Spherocytes Not Reportable 11/20/16 05:15 Pappenheimer Bodies Not Reportable 11/20/16 05:15 Sickle Cells Not Reportable 11/20/16 05:15 Target Cells Not Reportable 11/20/16 05:15 Tear Drop Cells Not Reportable 11/20/16 05:15 Ovalocytes Not Reportable 11/20/16 05:15 Helmet Cells Not Reportable 11/20/16 05:15 Markham-Hiram Bodies Not Reportable 11/20/16 05:15 [place] Rings Not Reportable 11/20/16 05:15 Fe Cells Not Reportable 11/20/16 05:15 Bite Cells Not Reportable 11/20/16 05:15 Crenated Cell Not Reportable 11/20/16 05:15 Elliptocytes Not Reportable 11/20/16 05:15 Acanthocytes (Spur) Not Reportable 11/20/16 05:15 Rouleaux Not Reportable 11/20/16 05:15 Hemoglobin C Crystals Not Reportable 11/20/16 05:15 Schistocytes Not Reportable 11/20/16 05:15 Malaria parasites Not Reportable 11/20/16 05:15 Saeed Bodies Not Reportable 11/20/16 05:15 Hem Pathologist Commnt No 11/20/16 05:15 Sodium 147 mmol/L (137-145) H 11/21/16 04:31 Potassium 3.0 mmol/L (3.6-5.0) L 11/21/16 04:31 Chloride 110.2 mmol/L (98-107) H 11/21/16 04:31 Carbon Dioxide 25 mmol/L (22-30) 11/21/16 04:31 Anion Gap 15 mmol/L 11/21/16 04:31 BUN 8 mg/dL (7-17) 11/21/16 04:31 Creatinine 0.7 mg/dL (0.7-1.2) 11/21/16 04:31 Estimated GFR > 60 ml/min 11/21/16 04:31 BUN/Creatinine Ratio 11.42 % 11/21/16 04:31 Glucose 116 mg/dL (65-100) H 11/21/16 04:31 Lactic Acid 1.80 mmol/L (0.7-2.0) 11/19/16 13:52 Calcium 7.9 mg/dL (8.4-10.2) L 11/21/16 04:31 Magnesium 2.10 mg/dL (1.7-2.3) 11/16/16 20:55 Total Bilirubin 0.60 mg/dL (0.1-1.2) 11/20/16 05:15 Direct Bilirubin 1.0 mg/dL (0-0.2) H 11/16/16 20:55 Indirect Bilirubin 0.9 mg/dL 11/16/16 20:55 AST 17 units/L (5-40) 11/20/16 05:15 ALT 21 units/L (7-56) 11/20/16 05:15 Alkaline Phosphatase 115 units/L (35-129) 11/20/16 05:15 Troponin T < 0.010 ng/mL (0.00-0.029) 11/16/16 20:55 Total Protein 6.0 g/dL (6.3-8.2) L 11/20/16 05:15 Albumin 2.5 g/dL (3.9-5) L 11/20/16 05:15 Albumin/Globulin Ratio 0.7 % 11/20/16 05:15 Lipase 105 units/L (13-60) H 11/16/16 20:55 HCG, Qual Negative (Negative) 11/19/16 13:52 Urine Color Yellow (Yellow) 11/16/16 23:41 Urine Turbidity Clear (Clear) 11/16/16 23:41 Urine pH 6.0 (5.0-7.0) 11/16/16 23:41 Ur Specific [place] 1.004 (1.003-1.030) 11/16/16 23:41 Urine Protein 30 mg/dl mg/dL (Negative) 11/16/16 23:41 Urine Glucose (UA) Neg mg/dL (Negative) 11/16/16 23:41 Urine Ketones Neg mg/dL (Negative) 11/16/16 23:41 Urine Blood Sm (Negative) 11/16/16 23:41 Urine Nitrite Neg (Negative) 11/16/16 23:41 Ur Reducing Substances Not Reportable 11/16/16 23:41 Urine Bilirubin Neg (Negative) 11/16/16 23:41 Urine Ictotest Not Reportable 11/16/16 23:41 Urine Urobilinogen < 2.0 mg/dL (<2.0) 11/16/16 23:41 Ur Leukocyte Esterase Neg (Negative) 11/16/16 23:41 Urine WBC (Auto) 4.0 /HPF (0.0-6.0) 11/16/16 23:41 Urine RBC (Auto) 2.0 /HPF (0.0-6.0) 11/16/16 23:41 Urine HCG, Qual Negative (Negative) 11/16/16 23:41 Blood Type O POSITIVE 11/19/16 13:35 Antibody Screen TNR 11/19/16 13:35 MARISSA Antibody Screen Negative 11/19/16 13:35
--- NOTE | 2016-11-21 14:07 | Progress Note ---
Assessment and Plan POD #2 Pt feeling well. + flatus ambulating down halls Abd soft. +BS stable low K replenish K as per Hospitalist. RN informed attempt cl liq diet no carbonated continue to monitor high wbc? Selected Entries 11/21/16 08:20 Temperature 98.8 F Pulse Rate [ 78 Left Radial] Respiratory 16 Rate Blood Pressure 112/81 [Left Arm] Laboratory Tests 11/20/16 11/21/16 11/21/16 05:15 04:31 04:31 WBC 24.1 H 17.7 H Hgb 10.0 L Hct 29.8 L Potassium 3.0 L Objective Vital Signs - 12hr 11/21/16 08:20 Temperature 98.8 F Pulse Rate [ 78 Left Radial] Respiratory 16 Rate Blood Pressure 112/81 [Left Arm] O2 Sat by Pulse 97 Oximetry - Labs 11/21/16 04:31 11/21/16 04:31 Diabetes panel 11/21/16 Range/Units 04:31 Sodium 147 H (137-145) mmol/L Potassium 3.0 L (3.6-5.0) mmol/L Chloride 110.2 H (98-107) mmol/L Carbon Dioxide 25 (22-30) mmol/L BUN 8 (7-17) mg/dL Creatinine 0.7 (0.7-1.2) mg/dL Glucose 116 H (65-100) mg/dL Calcium 7.9 L (8.4-10.2) mg/dL Calcium panel 11/21/16 Range/Units 04:31 Calcium 7.9 L (8.4-10.2) mg/dL Pituitary panel 11/21/16 Range/Units 04:31 Sodium 147 H (137-145) mmol/L Potassium 3.0 L (3.6-5.0) mmol/L Chloride 110.2 H (98-107) mmol/L Carbon Dioxide 25 (22-30) mmol/L BUN 8 (7-17) mg/dL Creatinine 0.7 (0.7-1.2) mg/dL Glucose 116 H (65-100) mg/dL Calcium 7.9 L (8.4-10.2) mg/dL Adrenal panel 11/21/16 Range/Units 04:31 Sodium 147 H (137-145) mmol/L Potassium 3.0 L (3.6-5.0) mmol/L Chloride 110.2 H (98-107) mmol/L Carbon Dioxide 25 (22-30) mmol/L BUN 8 (7-17) mg/dL Creatinine 0.7 (0.7-1.2) mg/dL Glucose 116 H (65-100) mg/dL Calcium 7.9 L (8.4-10.2) mg/dL
[2016-11-21] MEDS: KCL 10MEQ/100ML 10 MEQ/100 ML BAG IV SCH ×4 (17:14→18:29)
[2016-11-21] MEDS: D5/0.45NS 1,000 ML IV SCH (20:18)
[2016-11-22] MEDS: DILAUDID IV PRN ×5 (00:58→21:17)
[2016-11-22] MEDS: D5/0.45NS 1,000 ML IV SCH (05:49)
[2016-11-22 06:19] LABS: Basophils % (Auto) 0.1 % (0.0-1.8); Eosinophils % (Auto) 4.1 % (0.0-4.3); Hemoglobin 10.8 gm/dl (10.1-14.3); Mean Corpuscular HGB Conc 34 % (30-34); Mean Corpuscular Hemoglobin 31 pg (28-32); Mean Corpuscular Volume 92 fl (79-97); Platelet Count 254 K/mm3 (140-440); Red Blood Count 3.49 M/mm3 (3.65-5.03); White Blood Count 17.8 K/mm3 (4.5-11.0)
[2016-11-22 06:43] LABS: Anion Gap 15 mmol/L; BUN/Creatinine Ratio 5.71; Blood Urea Nitrogen 4 mg/dL (7-17); Calcium 8.2 mg/dL (8.4-10.2); Carbon Dioxide 27 mmol/L (22-30); Chloride 109.6 mmol/L (98-107); Glucose 95 mg/dL (65-100); Sodium 149 mmol/L (137-145)
[2016-11-22] MEDS ORDERED: K-DUR PO ONE (08:24)
[2016-11-22] MEDS: LEVAQUIN 750MG/150ML 750 MG/150 ML BAG IV SCH (10:07)
[2016-11-22] MEDS: PEPCID IV SCH ×2 (10:07→21:13)
--- NOTE | 2016-11-22 11:58 | Progress Note ---
Assessment and Plan POD #3 Pt feelilng well without compl alva cl liq diet Abd soft, dressings dry surgically stable still persistent elevated wbc ..? low K correct K advance diet ID eval Selected Entries 11/22/16 08:00 Temperature 98.3 F Pulse Rate [ 70 Left Radial] Blood Pressure 117/80 [Left Arm] Laboratory Tests 11/22/16 11/22/16 05:39 05:39 WBC 17.8 H Hgb 10.8 Hct 32.0 Potassium 3.0 L Objective Vital Signs - 12hr 11/22/16 11/22/16 11/22/16 00:58 05:38 08:00 Temperature 98.3 F Pulse Rate [ 70 Left Radial] Pulse Rate [ 70 Radial] Respiratory 20 18 18 Rate Blood Pressure 117/80 [Left Arm] O2 Sat by Pulse 100 Oximetry - Labs 11/22/16 05:39 11/22/16 05:39 Diabetes panel 11/21/16 11/22/16 Range/Units 19:50 05:39 Sodium 149 H (137-145) mmol/L Potassium 3.1 L 3.0 L (3.6-5.0) mmol/L Chloride 109.6 H (98-107) mmol/L Carbon Dioxide 27 (22-30) mmol/L BUN 4 L (7-17) mg/dL Creatinine 0.7 (0.7-1.2) mg/dL Glucose 95 (65-100) mg/dL Calcium 8.2 L (8.4-10.2) mg/dL Calcium panel 11/22/16 Range/Units 05:39 Calcium 8.2 L (8.4-10.2) mg/dL Pituitary panel 11/21/16 11/22/16 Range/Units 19:50 05:39 Sodium 149 H (137-145) mmol/L Potassium 3.1 L 3.0 L (3.6-5.0) mmol/L Chloride 109.6 H (98-107) mmol/L Carbon Dioxide 27 (22-30) mmol/L BUN 4 L (7-17) mg/dL Creatinine 0.7 (0.7-1.2) mg/dL Glucose 95 (65-100) mg/dL Calcium 8.2 L (8.4-10.2) mg/dL Adrenal panel 07/20/17 07/21/17 Range/Units 19:50 05:39 Sodium 149 H (137-145) mmol/L Potassium 3.1 L 3.0 L (3.6-5.0) mmol/L Chloride 109.6 H (98-107) mmol/L Carbon Dioxide 27 (22-30) mmol/L BUN 4 L (7-17) mg/dL Creatinine 0.7 (0.7-1.2) mg/dL Glucose 95 (65-100) mg/dL Calcium 8.2 L (8.4-10.2) mg/dL
[2016-11-22] MEDS: ZOFRAN IV PRN (12:28)
--- NOTE | 2016-11-22 12:38 | Consultation ---
History of Present Illness - Reason for Consult Consult date: 11/22/16 Elevated WBCs Requesting physician: SAE DRAKE - History of Present Illness Ms. Leung is a 21-year-old woman who was admitted with abdominal pain and a rash reportedly after eating cake at a friend's green party. She was initially treated at [facility] and discharged with a brief Prednisone course and other meds to treat an allergic dermatitis. She presents more recently to [facility] with abdominal pain. Abdominal U/S showed no cholelithiasis or biliary dilatation. Abdominal XR showed no evidence of small bowel obstruction. She underwent an explorative laparotomy and was found to have intusseception with spontaneous resolution. An incidental appendectomy was also done. She had a WBC count of > 20K on admission, which has been steadily downtrending over subsequent days. She is on Levaquin empirically and has completed 5 days of therapy. She has no new complaints. She notes dark urine that lasted ofr a few episodes only post-op. ID consultation is requested for evaluation of leukocytosis. Past History Past Medical History: No medical history, other (intusseception) Past Surgical History: appendectomy (2017) Social history: no significant social history, lives with family Family history: no significant family history Medications and Allergies Allergies Allergy/AdvReac Type Severity Reaction Status Date / Time No Known Allergies Allergy Verified 11/16/16 20:48 Home Medications Medication Instructions Recorded Confirmed Last Taken Type No Known Home Medications [No 11/17/16 11/17/16 Unknown History Reported Home Medications] Active Meds: Active Medications Acetaminophen (Tylenol) 650 mg PO Q4H PRN PRN Reason: Pain MILD(1-3)/Fever >100.5/BYRNE Last Admin: 11/18/16 00:53 Dose: 650 mg Famotidine (Pepcid) 20 mg IV BID [place] Last Admin: 11/22/16 10:07 Dose: 20 mg Guaifenesin (Robitussin) 200 mg PO Q4H PRN PRN Reason: Cough Last Admin: 11/21/16 03:00 Dose: 200 mg Hydromorphone HCl (Dilaudid) 1 mg IV Q3H PRN PRN Reason: Pain , Severe (7-10) Last Admin: 11/22/16 12:28 Dose: 1 mg Levofloxacin/Dextrose (Levaquin 750mg/150ml) 750 mg in 150 mls @ 100 mls/hr IV Q24HR [place] PRN Reason: Protocol Last Admin: 11/22/16 10:07 Dose: 100 mls/hr Dextrose/Sodium Chloride (D5/0.45ns) 1,000 mls @ 125 mls/hr IV DIRECT [place] Last Admin: 11/22/16 05:49 Dose: 125 mls/hr Ondansetron HCl (Zofran) 4 mg IV Q8H PRN PRN Reason: N/V unrelieved by Reglan Last Admin: 11/22/16 12:28 Dose: 4 mg Review of Systems All systems: negative Constitutional: no fever, no chills, no sweats, no weakness Ears, nose, mouth and throat: no sore throat Cardiovascular: no chest pain, no palpitations Respiratory: no cough, no hemoptysis, no shortness of breath Gastrointestinal: abdominal pain (appropriate post-op pain), no nausea, no vomiting Genitourinary Female: no dysuria, no vaginal discharge Integumentary: no rash, no pruritis Neurological: no headaches Physical Examination - Constitutional Vitals: Vital Signs Temp Pulse Resp BP Pulse Ox 98.3 F 70 18 117/80 100 11/22/16 08:00 11/22/16 08:00 11/22/16 08:00 11/22/16 08:00 11/22/16 08:00 Temperature -Last 24 Hours Temperature 98.3 F Temperature 98.6 F Temperature 98.5 F General appearance: Present: no acute distress, well-nourished, other (non- toxic appearance) - EENT Eyes: Absent: scleral icterus, conjunctival injection - Neck Neck: Present: supple - Respiratory Respiratory effort: normal Respiratory: bilateral: CTA, negative: rales - Cardiovascular Rhythm: regular Heart Sounds: Present: S1 & S2 - Extremities Extremities: No edema - Abdominal General gastrointestinal: Present: soft, other (abdominal binder removed, surgical compression dressing remains in place) Localized gastrointestinal: tender: suprapubic, midline - Integumentary Integumentary: Present: clear (multiple tattooes), rash. Absent: jaundice - Psychiatric Psychiatric: appropriate mood/affect - Neurologic Neurologic: moves all extremities Results - Labs CBC & Chem 7: 11/22/16 05:39 11/22/16 05:39 Labs: Abnormal lab results 11/21/16 11/22/16 11/22/16 Range/Units 19:50 05:39 05:39 WBC 17.8 H (4.5-11.0) K/mm3 RBC 3.49 L (3.65-5.03) M/mm3 Lymph % (Auto) 8.8 L (13.4-35.0) % [place] % (Auto) 8.9 H (0.0-7.3) % [place] # 1.6 H (0.0-0.8) K/mm3 Eos # 0.7 H (0.0-0.4) K/mm3 Seg Neutrophils % 78.1 H (40.0-70.0) % Seg Neutrophils # 13.9 H (1.8-7.7) K/mm3 Sodium 149 H (137-145) mmol/L Potassium 3.1 L 3.0 L (3.6-5.0) mmol/L Chloride 109.6 H (98-107) mmol/L BUN 4 L (7-17) mg/dL Calcium 8.2 L (8.4-10.2) mg/dL Microbiology 11/17/16 01:06 Peripheral/Venous Blood Culture - Final NO GROWTH AFTER 5 DAYS 11/17/16 01:41 Peripheral/Venous Blood Culture - Final NO GROWTH AFTER 5 DAYS - Imaging and Cardiology Chest x-ray: report reviewed (no acute cardiopulmonary findings) Assessment and Plan - Patient Problems (1) Leukocytosis Current Visit: Yes Status: Acute Qualifiers: Leukocytosis type: L Plan to address problem: 1. Elevated WBC count is downtrending and likely elevated from either recent Prednisone use or intra-abdominal process, both resolved. 2. Patient has received 5 days of empiric Levaquin. 3. Would continue to monitor clinically off antibiotics. (2) Intussusception of small bowel Current Visit: Yes Status: Acute Plan to address problem: Spontaneously resolved.
--- NOTE | 2016-11-22 14:27 | Progress Note ---
Assessment and Plan Assessment and plan: 21-year-old female with no significant Past medical history presents to the hospital with nausea, vomiting and abdominal pain Intussusception of small bowel - Status post exploratory laparotomy on 11/19/16 - Patient didn't have any perforation, or gangrene of the bowel - Surgery is following her, diet advanced to full liquid today Acute Bronchitis - Patient had cough which was productive of grayish sputum, CXR is negative - has now had 6 days of levaquin, will dc abx Hypernatremia/dehydration - change IVfluid to D5w Hypokalemia replete PO check mag level DVT prophylaxis -Lovenox - Advise to ambulate History Interval history: States abdominal pain is improved, she is passing gas but has not had a bowel movement. She is tolerating diet well. Has an upgraded to full liquid diet today. Hospitalist Physical - Physical exam Narrative exam: General: Patient appears well in no distress HEENT: MMM, EOMI cardiac: S1-S2 heard lungs: clear to auscultation, abdomen: soft, nontender, nondistended bowel sounds positive extremities: no edema clubbing or cyanosis Skin: no rash or lesion Neuro: no focal deficit Psych: appropriate behavior and mood, cognition intact - Constitutional Vitals: Temp Pulse Resp BP Pulse Ox 98.3 F 70 18 117/80 100 11/22/16 08:00 11/22/16 08:00 11/22/16 08:00 11/22/16 08:00 11/22/16 08:00 General appearance: Present: mild distress, well-nourished Results - Labs CBC & Chem 7: 11/22/16 05:39 11/22/16 05:39 Labs: Laboratory Last Values WBC 17.8 K/mm3 (4.5-11.0) H 11/22/16 05:39 RBC 3.49 M/mm3 (3.65-5.03) L 11/22/16 05:39 Hgb 10.8 gm/dl (10.1-14.3) 11/22/16 05:39 Hct 32.0 % (30.3-42.9) 11/22/16 05:39 MCV 92 fl (79-97) 11/22/16 05:39 MCH 31 pg (28-32) 11/22/16 05:39 MCHC 34 % (30-34) 11/22/16 05:39 RDW 14.0 % (13.2-15.2) 11/22/16 05:39 Plt Count 254 K/mm3 (140-440) 11/22/16 05:39 Lymph % (Auto) 8.8 % (13.4-35.0) L 11/22/16 05:39 [place] % (Auto) 8.9 % (0.0-7.3) H 11/22/16 05:39 Eos % (Auto) 4.1 % (0.0-4.3) 11/22/16 05:39 Baso % (Auto) 0.1 % (0.0-1.8) 11/22/16 05:39 Lymph # 1.6 K/mm3 (1.2-5.4) 11/22/16 05:39 [place] # 1.6 K/mm3 (0.0-0.8) H 11/22/16 05:39 Eos # 0.7 K/mm3 (0.0-0.4) H 11/22/16 05:39 Baso # 0.0 K/mm3 (0.0-0.1) 11/22/16 05:39 Add Manual Diff Complete 11/20/16 05:15 Total Counted 100 11/20/16 05:15 Seg Neutrophils % 78.1 % (40.0-70.0) H 11/22/16 05:39 Seg Neuts % (Manual) 80.0 % (40.0-70.0) H 11/20/16 05:15 Band Neutrophils % 9.0 % 11/20/16 05:15 Lymphocytes % (Manual) 3.0 % (13.4-35.0) L 11/20/16 05:15 Reactive Lymphs % (Man) 0 % 11/20/16 05:15 Monocytes % (Manual) 6.0 % (0.0-7.3) 11/20/16 05:15 Eosinophils % (Manual) 0 % (0.0-4.3) 11/20/16 05:15 Basophils % (Manual) 0 % (0.0-1.8) 11/20/16 05:15 Metamyelocytes % 2.0 % 11/20/16 05:15 Myelocytes % 0 % 11/20/16 05:15 Promyelocytes % 0 % 11/20/16 05:15 Blast Cells % 0 % 11/20/16 05:15 Nucleated RBC % Not Reportable 11/20/16 05:15 Seg Neutrophils # 13.9 K/mm3 (1.8-7.7) H 11/22/16 05:39 Seg Neutrophils # Man 19.3 K/mm3 (1.8-7.7) H 11/20/16 05:15 Band Neutrophils # 2.2 K/mm3 11/20/16 05:15 Lymphocytes # (Manual) 0.7 K/mm3 (1.2-5.4) L 11/20/16 05:15 Abs React Lymphs (Man) 0.0 K/mm3 11/20/16 05:15 Monocytes # (Manual) 1.4 K/mm3 (0.0-0.8) H 11/20/16 05:15 Eosinophils # (Manual) 0.0 K/mm3 (0.0-0.4) 11/20/16 05:15 Basophils # (Manual) 0.0 K/mm3 (0.0-0.1) 11/20/16 05:15 Metamyelocytes # 0.5 K/mm3 11/20/16 05:15 Myelocytes # 0.0 K/mm3 11/20/16 05:15 Promyelocytes # 0.0 K/mm3 11/20/16 05:15 Blast Cells # 0.0 K/mm3 11/20/16 05:15 WBC Morphology Not Reportable 11/20/16 05:15 Hypersegmented Neuts Not Reportable 11/20/16 05:15 Hyposegmented Neuts Not Reportable 11/20/16 05:15 Hypogranular Neuts Not Reportable 11/20/16 05:15 Smudge Cells Not Reportable 11/20/16 05:15 Toxic Granulation Not Reportable 11/20/16 05:15 Toxic Vacuolation Not Reportable 11/20/16 05:15 Dohle Bodies Not Reportable 11/20/16 05:15 Pelger-Huet Anomaly Not Reportable 11/20/16 05:15 Bob Rods Not Reportable 11/20/16 05:15 Platelet Estimate Consistent w auto 11/20/16 05:15 Clumped Platelets Not Reportable 11/20/16 05:15 Plt Clumps, EDTA Not Reportable 11/20/16 05:15 Large Platelets Not Reportable 11/20/16 05:15 Giant Platelets Not Reportable 11/20/16 05:15 Platelet Satelliting Not Reportable 11/20/16 05:15 Plt Morphology Comment Not Reportable 11/20/16 05:15 RBC Morphology Normal 11/20/16 05:15 Dimorphic RBCs Not Reportable 11/20/16 05:15 Polychromasia Not Reportable 11/20/16 05:15 Hypochromasia Not Reportable 11/20/16 05:15 Poikilocytosis Not Reportable 11/20/16 05:15 Anisocytosis Not Reportable 11/20/16 05:15 Microcytosis Not Reportable 11/20/16 05:15 Macrocytosis Not Reportable 11/20/16 05:15 Spherocytes Not Reportable 11/20/16 05:15 Pappenheimer Bodies Not Reportable 11/20/16 05:15 Sickle Cells Not Reportable 11/20/16 05:15 Target Cells Not Reportable 11/20/16 05:15 Tear Drop Cells Not Reportable 11/20/16 05:15 Ovalocytes Not Reportable 11/20/16 05:15 Helmet Cells Not Reportable 11/20/16 05:15 [place] Bodies Not Reportable 11/20/16 05:15 [place] Rings Not Reportable 11/20/16 05:15 [place] Cells Not Reportable 11/20/16 05:15 Bite Cells Not Reportable 11/20/16 05:15 Crenated Cell Not Reportable 11/20/16 05:15 Elliptocytes Not Reportable 11/20/16 05:15 Acanthocytes (Spur) Not Reportable 11/20/16 05:15 Rouleaux Not Reportable 11/20/16 05:15 Hemoglobin C Crystals Not Reportable 11/20/16 05:15 Schistocytes Not Reportable 11/20/16 05:15 Malaria parasites Not Reportable 11/20/16 05:15 Saeed Bodies Not Reportable 11/20/16 05:15 Hem Pathologist Commnt No 11/20/16 05:15 Sodium 149 mmol/L (137-145) H 11/22/16 05:39 Potassium 3.0 mmol/L (3.6-5.0) L 11/22/16 05:39 Chloride 109.6 mmol/L (98-107) H 11/22/16 05:39 Carbon Dioxide 27 mmol/L (22-30) 11/22/16 05:39 Anion Gap 15 mmol/L 11/22/16 05:39 BUN 4 mg/dL (7-17) L 11/22/16 05:39 Creatinine 0.7 mg/dL (0.7-1.2) 11/22/16 05:39 Estimated GFR > 60 ml/min 11/22/16 05:39 BUN/Creatinine Ratio 5.71 % 11/22/16 05:39 Glucose 95 mg/dL (65-100) 11/22/16 05:39 Lactic Acid 1.80 mmol/L (0.7-2.0) 11/19/16 13:52 Calcium 8.2 mg/dL (8.4-10.2) L 11/22/16 05:39 Magnesium 2.10 mg/dL (1.7-2.3) 11/16/16 20:55 Total Bilirubin 0.60 mg/dL (0.1-1.2) 11/20/16 05:15 Direct Bilirubin 1.0 mg/dL (0-0.2) H 11/16/16 20:55 Indirect Bilirubin 0.9 mg/dL 11/16/16 20:55 AST 17 units/L (5-40) 11/20/16 05:15 ALT 21 units/L (7-56) 11/20/16 05:15 Alkaline Phosphatase 115 units/L (35-129) 11/20/16 05:15 Troponin T < 0.010 ng/mL (0.00-0.029) 11/16/16 20:55 Total Protein 6.0 g/dL (6.3-8.2) L 11/20/16 05:15 Albumin 2.5 g/dL (3.9-5) L 11/20/16 05:15 Albumin/Globulin Ratio 0.7 % 11/20/16 05:15 Lipase 105 units/L (13-60) H 11/16/16 20:55 HCG, Qual Negative (Negative) 11/19/16 13:52 Urine Color Yellow (Yellow) 11/16/16 23:41 Urine Turbidity Clear (Clear) 11/16/16 23:41 Urine pH 6.0 (5.0-7.0) 11/16/16 23:41 Ur Specific [place] 1.004 (1.003-1.030) 11/16/16 23:41 Urine Protein 30 mg/dl mg/dL (Negative) 11/16/16 23:41 Urine Glucose (UA) Neg mg/dL (Negative) 11/16/16 23:41 Urine Ketones Neg mg/dL (Negative) 11/16/16 23:41 Urine Blood Sm (Negative) 11/16/16 23:41 Urine Nitrite Neg (Negative) 11/16/16 23:41 Ur Reducing Substances Not Reportable 11/16/16 23:41 Urine Bilirubin Neg (Negative) 11/16/16 23:41 Urine Ictotest Not Reportable 11/16/16 23:41 Urine Urobilinogen < 2.0 mg/dL (<2.0) 11/16/16 23:41 Ur Leukocyte Esterase Neg (Negative) 11/16/16 23:41 Urine WBC (Auto) 4.0 /HPF (0.0-6.0) 11/16/16 23:41 Urine RBC (Auto) 2.0 /HPF (0.0-6.0) 11/16/16 23:41 Urine HCG, Qual Negative (Negative) 11/16/16 23:41 Blood Type O POSITIVE 11/19/16 13:35 Antibody Screen TNR 11/19/16 13:35 MARISSA Antibody Screen Negative 11/19/16 13:35
[2016-11-22] MEDS ORDERED: KCL 20 MEQ in D5W 1,000 ML IV SCH (15:15)
--- NOTE | 2016-11-22 17:26 | Consultation ---
History of Present Illness - Reason for Consult Consult date: 11/22/16 Reason for consult: psychiatric evaluation - Chief Complaint Chief complaint: "I am depressed" 21-year-old female see on the medical floor psychiatric evaluation. She presented to the hospital with abdominal pain, nausea, vomiting, and body aches. She underwent a laparotomy to treat intussusception 3 days ago. The patient reports she continues to have nausea and vomiting when she attempts to eat anything. She moved from [place] 3 weeks ago to help a friend. She planned to model. 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 She admits to depression. She described poor body image, anhedonia, depressed mood, and poor coping skills. She reports a history of depression and suicide attempt after an in 2014. She took 8 tylenol. She did not receive further treatment. She reports the depression improved but admits she treats stress with marijuana regularly. She denies alcohol or other mood altering substance use. She denies suicidal ideation, homicidal ideation, or psychotic symptoms. No history of manic symptoms. Denies history of abuse/trauma. Medications and Allergies Allergies Allergy/AdvReac Type Severity Reaction Status Date / Time No Known Allergies Allergy Verified 11/16/16 20:48 Home Medications Medication Instructions Recorded Confirmed Last Taken Type No Known Home Medications [No 11/17/16 11/17/16 Unknown History Reported Home Medications] Active Meds: Active Medications Acetaminophen (Tylenol) 650 mg PO Q4H PRN PRN Reason: Pain MILD(1-3)/Fever >100.5/BYRNE Last Admin: 11/18/16 00:53 Dose: 650 mg Famotidine (Pepcid) 20 mg IV BID [place] Last Admin: 11/22/16 10:07 Dose: 20 mg Guaifenesin (Robitussin) 200 mg PO Q4H PRN PRN Reason: Cough Last Admin: 11/21/16 03:00 Dose: 200 mg Hydromorphone HCl (Dilaudid) 1 mg IV Q3H PRN PRN Reason: Pain , Severe (7-10) Last Admin: 11/22/16 16:46 Dose: 1 mg Potassium Chloride 20 meq/ (Dextrose) 1,010 mls @ 100 mls/hr IV DIRECT [place] Sodium Chloride (Nacl 0.9% 500 Ml) 500 mls @ 999 mls/hr IV ONCE ONE Stop: 11/22/16 18:09 Ondansetron HCl (Zofran) 4 mg IV Q8H PRN PRN Reason: N/V unrelieved by Ravi Last Admin: 11/22/16 12:28 Dose: 4 mg Past psychiatric history - Past Medical History Past Medical History: other ( (medication)) Past Surgical History: Other (laparotomy during this hospital visit. ) - past Psychiatric treatment and history Psych: Depression psychiatric treatment history: no previous treatment She was seen in the ER in 2014 following a tylenol overdose. She was discharged from there. - Social History Social history: lives with family Mental Status Exam - Vital signs Last Vital Signs Temp 98.5 F 11/22/16 16:00 Pulse 73 11/22/16 16:00 Resp 18 11/22/16 16:00 BP 111/69 11/22/16 16:00 Pulse Ox 100 11/22/16 16:00 - Exam Orientation: time, place, person Affect: depressed Mood: congruent with affect Thought content: other (no SI, no HI) Thought Process: Intact Perceptions: none Speech: normal rate and pattern Concentration: focused Motor activity: normal Level of consciousness: alert Sleep Symptoms: None Appetite: decreased Interaction: cooperative Results Result Diagrams: 11/22/16 05:39 11/23/16 05:45 Abnormal lab results 11/21/16 11/22/16 11/22/16 Range/Units 19:50 05:39 05:39 WBC 17.8 H (4.5-11.0) K/mm3 RBC 3.49 L (3.65-5.03) M/mm3 Lymph % (Auto) 8.8 L (13.4-35.0) % [place] % (Auto) 8.9 H (0.0-7.3) % [place] # 1.6 H (0.0-0.8) K/mm3 Eos # 0.7 H (0.0-0.4) K/mm3 Seg Neutrophils % 78.1 H (40.0-70.0) % Seg Neutrophils # 13.9 H (1.8-7.7) K/mm3 Sodium 149 H (137-145) mmol/L Potassium 3.1 L 3.0 L (3.6-5.0) mmol/L Chloride 109.6 H (98-107) mmol/L BUN 4 L (7-17) mg/dL Calcium 8.2 L (8.4-10.2) mg/dL All other labs normal. Assessment and Plan Assessment and plan: Impression: major depression, mild No suicidal ideation. Recent medical events and current health is an acute stressor 1013 is not indicated Recommendation: Outpatient mental health referrals will be provided. Consider an antidepressant once her GI condition has improved.
[2016-11-22] MEDS ORDERED: NACL 0.9% 500 ML 500 ML IV ONE (17:39)
[2016-11-23] MEDS: DILAUDID IV PRN ×5 (00:18→21:59)
[2016-11-23 07:35] LABS: Anion Gap 15 mmol/L; Blood Urea Nitrogen 7 mg/dL (7-17); Calcium 8.8 mg/dL (8.4-10.2); Carbon Dioxide 31 mmol/L (22-30); Chloride 107.1 mmol/L (98-107); Glucose 81 mg/dL (65-100); Potassium 3.2 mmol/L (3.6-5.0); Sodium 150 mmol/L (137-145)
[2016-11-23] MEDS: PEPCID PO SCH ×2 (10:28→21:54)
--- NOTE | 2016-11-23 12:28 | Progress Note ---
Assessment and Plan Assessment and plan: 21-year-old female with no significant Past medical history presents to the hospital with nausea, vomiting and abdominal pain Intussusception of small bowel - Status post exploratory laparotomy on 11/19/16 - Patient didn't have any perforation, or gangrene of the bowel - Surgery is following her, diet advanced to full liquid - yet to have a BM Acute Bronchitis - Patient had cough which was productive of grayish sputum, CXR is negative - she completed 6 days of levaquin Hypernatremia/dehydration - continue d5w Hypokalemia continue to replete mag level wnl DVT prophylaxis -Lovenox - Advise to ambulate History Interval history: States abdominal pain is improved, she is passing gas but has not had a bowel movement. She is tolerating diet well. Hospitalist Physical - Physical exam Narrative exam: General: Patient appears well in no distress HEENT: MMM, EOMI cardiac: S1-S2 heard lungs: clear to auscultation, abdomen: soft, nontender, nondistended bowel sounds positive extremities: no edema clubbing or cyanosis Skin: no rash or lesion Neuro: no focal deficit Psych: appropriate behavior and mood, cognition intact - Constitutional Vitals: Temp Pulse Resp BP Pulse Ox 98.2 F 72 16 119/73 100 11/23/16 08:00 11/23/16 08:00 11/23/16 08:00 11/23/16 08:00 11/23/16 08:00 General appearance: Present: no acute distress, well-nourished, other (non- toxic appearance) Results - Labs CBC & Chem 7: 11/22/16 05:39 11/23/16 05:45 Labs: Laboratory Last Values WBC 17.8 K/mm3 (4.5-11.0) H 11/22/16 05:39 RBC 3.49 M/mm3 (3.65-5.03) L 11/22/16 05:39 Hgb 10.8 gm/dl (10.1-14.3) 11/22/16 05:39 Hct 32.0 % (30.3-42.9) 11/22/16 05:39 MCV 92 fl (79-97) 11/22/16 05:39 MCH 31 pg (28-32) 11/22/16 05:39 MCHC 34 % (30-34) 11/22/16 05:39 RDW 14.0 % (13.2-15.2) 11/22/16 05:39 Plt Count 254 K/mm3 (140-440) 11/22/16 05:39 Lymph % (Auto) 8.8 % (13.4-35.0) L 11/22/16 05:39 [place] % (Auto) 8.9 % (0.0-7.3) H 11/22/16 05:39 Eos % (Auto) 4.1 % (0.0-4.3) 11/22/16 05:39 Baso % (Auto) 0.1 % (0.0-1.8) 11/22/16 05:39 Lymph # 1.6 K/mm3 (1.2-5.4) 11/22/16 05:39 [place] # 1.6 K/mm3 (0.0-0.8) H 11/22/16 05:39 Eos # 0.7 K/mm3 (0.0-0.4) H 11/22/16 05:39 Baso # 0.0 K/mm3 (0.0-0.1) 11/22/16 05:39 Add Manual Diff Complete 11/20/16 05:15 Total Counted 100 11/20/16 05:15 Seg Neutrophils % 78.1 % (40.0-70.0) H 11/22/16 05:39 Seg Neuts % (Manual) 80.0 % (40.0-70.0) H 11/20/16 05:15 Band Neutrophils % 9.0 % 11/20/16 05:15 Lymphocytes % (Manual) 3.0 % (13.4-35.0) L 11/20/16 05:15 Reactive Lymphs % (Man) 0 % 11/20/16 05:15 Monocytes % (Manual) 6.0 % (0.0-7.3) 11/20/16 05:15 Eosinophils % (Manual) 0 % (0.0-4.3) 11/20/16 05:15 Basophils % (Manual) 0 % (0.0-1.8) 11/20/16 05:15 Metamyelocytes % 2.0 % 11/20/16 05:15 Myelocytes % 0 % 11/20/16 05:15 Promyelocytes % 0 % 11/20/16 05:15 Blast Cells % 0 % 11/20/16 05:15 Nucleated RBC % Not Reportable 11/20/16 05:15 Seg Neutrophils # 13.9 K/mm3 (1.8-7.7) H 11/22/16 05:39 Seg Neutrophils # Man 19.3 K/mm3 (1.8-7.7) H 11/20/16 05:15 Band Neutrophils # 2.2 K/mm3 11/20/16 05:15 Lymphocytes # (Manual) 0.7 K/mm3 (1.2-5.4) L 11/20/16 05:15 Abs React Lymphs (Man) 0.0 K/mm3 11/20/16 05:15 Monocytes # (Manual) 1.4 K/mm3 (0.0-0.8) H 11/20/16 05:15 Eosinophils # (Manual) 0.0 K/mm3 (0.0-0.4) 11/20/16 05:15 Basophils # (Manual) 0.0 K/mm3 (0.0-0.1) 11/20/16 05:15 Metamyelocytes # 0.5 K/mm3 11/20/16 05:15 Myelocytes # 0.0 K/mm3 11/20/16 05:15 Promyelocytes # 0.0 K/mm3 11/20/16 05:15 Blast Cells # 0.0 K/mm3 11/20/16 05:15 WBC Morphology Not Reportable 11/20/16 05:15 Hypersegmented Neuts Not Reportable 11/20/16 05:15 Hyposegmented Neuts Not Reportable 11/20/16 05:15 Hypogranular Neuts Not Reportable 11/20/16 05:15 Smudge Cells Not Reportable 11/20/16 05:15 Toxic Granulation Not Reportable 11/20/16 05:15 Toxic Vacuolation Not Reportable 11/20/16 05:15 Dohle Bodies Not Reportable 11/20/16 05:15 Pelger-Huet Anomaly Not Reportable 11/20/16 05:15 Bob Rods Not Reportable 11/20/16 05:15 Platelet Estimate Consistent w auto 11/20/16 05:15 Clumped Platelets Not Reportable 11/20/16 05:15 Plt Clumps, EDTA Not Reportable 11/20/16 05:15 Large Platelets Not Reportable 11/20/16 05:15 Giant Platelets Not Reportable 11/20/16 05:15 Platelet Satelliting Not Reportable 11/20/16 05:15 Plt Morphology Comment Not Reportable 11/20/16 05:15 RBC Morphology Normal 11/20/16 05:15 Dimorphic RBCs Not Reportable 11/20/16 05:15 Polychromasia Not Reportable 11/20/16 05:15 Hypochromasia Not Reportable 11/20/16 05:15 Poikilocytosis Not Reportable 11/20/16 05:15 Anisocytosis Not Reportable 11/20/16 05:15 Microcytosis Not Reportable 11/20/16 05:15 Macrocytosis Not Reportable 11/20/16 05:15 Spherocytes Not Reportable 11/20/16 05:15 Pappenheimer Bodies Not Reportable 11/20/16 05:15 Sickle Cells Not Reportable 11/20/16 05:15 Target Cells Not Reportable 11/20/16 05:15 Tear Drop Cells Not Reportable 11/20/16 05:15 Ovalocytes Not Reportable 11/20/16 05:15 Helmet Cells Not Reportable 11/20/16 05:15 [place] Bodies Not Reportable 11/20/16 05:15 [place] Rings Not Reportable 11/20/16 05:15 [place] Cells Not Reportable 11/20/16 05:15 Bite Cells Not Reportable 11/20/16 05:15 Crenated Cell Not Reportable 11/20/16 05:15 Elliptocytes Not Reportable 11/20/16 05:15 Acanthocytes (Spur) Not Reportable 11/20/16 05:15 Rouleaux Not Reportable 11/20/16 05:15 Hemoglobin C Crystals Not Reportable 11/20/16 05:15 Schistocytes Not Reportable 11/20/16 05:15 Malaria parasites Not Reportable 11/20/16 05:15 Saeed Bodies Not Reportable 11/20/16 05:15 Hem Pathologist Commnt No 11/20/16 05:15 Sodium 150 mmol/L (137-145) H 11/23/16 05:45 Potassium 3.2 mmol/L (3.6-5.0) L 11/23/16 05:45 Chloride 107.1 mmol/L (98-107) H 11/23/16 05:45 Carbon Dioxide 31 mmol/L (22-30) H 11/23/16 05:45 Anion Gap 15 mmol/L 11/23/16 05:45 BUN 7 mg/dL (7-17) 11/23/16 05:45 Creatinine 0.7 mg/dL (0.7-1.2) 11/23/16 05:45 Estimated GFR > 60 ml/min 11/23/16 05:45 BUN/Creatinine Ratio 10.00 % 11/23/16 05:45 Glucose 81 mg/dL (65-100) 11/23/16 05:45 Lactic Acid 1.80 mmol/L (0.7-2.0) 11/19/16 13:52 Calcium 8.8 mg/dL (8.4-10.2) 11/23/16 05:45 Magnesium 1.80 mg/dL (1.7-2.3) 11/22/16 14:57 Total Bilirubin 0.60 mg/dL (0.1-1.2) 11/20/16 05:15 Direct Bilirubin 1.0 mg/dL (0-0.2) H 11/16/16 20:55 Indirect Bilirubin 0.9 mg/dL 11/16/16 20:55 AST 17 units/L (5-40) 11/20/16 05:15 ALT 21 units/L (7-56) 11/20/16 05:15 Alkaline Phosphatase 115 units/L (35-129) 11/20/16 05:15 Troponin T < 0.010 ng/mL (0.00-0.029) 11/16/16 20:55 Total Protein 6.0 g/dL (6.3-8.2) L 11/20/16 05:15 Albumin 2.5 g/dL (3.9-5) L 11/20/16 05:15 Albumin/Globulin Ratio 0.7 % 11/20/16 05:15 Lipase 105 units/L (13-60) H 11/16/16 20:55 HCG, Qual Negative (Negative) 11/19/16 13:52 Urine Color Yellow (Yellow) 11/16/16 23:41 Urine Turbidity Clear (Clear) 11/16/16 23:41 Urine pH 6.0 (5.0-7.0) 11/16/16 23:41 Ur Specific [place] 1.004 (1.003-1.030) 11/16/16 23:41 Urine Protein 30 mg/dl mg/dL (Negative) 11/16/16 23:41 Urine Glucose (UA) Neg mg/dL (Negative) 11/16/16 23:41 Urine Ketones Neg mg/dL (Negative) 11/16/16 23:41 Urine Blood Sm (Negative) 11/16/16 23:41 Urine Nitrite Neg (Negative) 11/16/16 23:41 Ur Reducing Substances Not Reportable 11/16/16 23:41 Urine Bilirubin Neg (Negative) 11/16/16 23:41 Urine Ictotest Not Reportable 11/16/16 23:41 Urine Urobilinogen < 2.0 mg/dL (<2.0) 11/16/16 23:41 Ur Leukocyte Esterase Neg (Negative) 11/16/16 23:41 Urine WBC (Auto) 4.0 /HPF (0.0-6.0) 11/16/16 23:41 Urine RBC (Auto) 2.0 /HPF (0.0-6.0) 11/16/16 23:41 Urine HCG, Qual Negative (Negative) 11/16/16 23:41 Blood Type O POSITIVE 11/19/16 13:35 Antibody Screen TNR 11/19/16 13:35 MARISSA Antibody Screen Negative 11/19/16 13:35
[2016-11-23] MEDS: KCL 10MEQ/100ML 10 MEQ/100 ML BAG IV SCH ×4 (13:43→18:23)
[2016-11-23] MEDS: PERCOCET 5/325 PO PRN (18:27)
--- NOTE | 2016-11-23 19:52 | Progress Note ---
Assessment and Plan POD #4 Pt feeling well. no compl. alva full liq hungry, wants reg diet. +flatus but no BM Abd soft. +BS incision clean & dry] still electrolyte imbalances (High NaCl & low K) high wbc surgically stable attempt reg diet Selected Entries 11/23/16 15:18 Temperature 98.6 F Pulse Rate [ 68 Radial] Blood Pressure 127/61 [Left Arm] Laboratory Tests 11/23/16 05:45 Sodium 150 H Potassium 3.2 L Chloride 107.1 H BUN 7 Creatinine 0.7 Objective Vital Signs - 12hr 11/23/16 11/23/16 08:00 15:18 Temperature 98.2 F 98.6 F Pulse Rate [ 72 68 Left Radial] Pulse Rate [ 72 68 Radial] Respiratory 16 18 Rate Blood Pressure 119/73 127/61 [Left Arm] O2 Sat by Pulse 100 100 Oximetry - Labs 11/22/16 05:39 11/23/16 05:45 Diabetes panel 11/23/16 Range/Units 05:45 Sodium 150 H (137-145) mmol/L Potassium 3.2 L (3.6-5.0) mmol/L Chloride 107.1 H (98-107) mmol/L Carbon Dioxide 31 H (22-30) mmol/L BUN 7 (7-17) mg/dL Creatinine 0.7 (0.7-1.2) mg/dL Glucose 81 (65-100) mg/dL Calcium 8.8 (8.4-10.2) mg/dL Calcium panel 11/23/16 Range/Units 05:45 Calcium 8.8 (8.4-10.2) mg/dL Pituitary panel 11/23/16 Range/Units 05:45 Sodium 150 H (137-145) mmol/L Potassium 3.2 L (3.6-5.0) mmol/L Chloride 107.1 H (98-107) mmol/L Carbon Dioxide 31 H (22-30) mmol/L BUN 7 (7-17) mg/dL Creatinine 0.7 (0.7-1.2) mg/dL Glucose 81 (65-100) mg/dL Calcium 8.8 (8.4-10.2) mg/dL Adrenal panel 11/23/16 Range/Units 05:45 Sodium 150 H (137-145) mmol/L Potassium 3.2 L (3.6-5.0) mmol/L Chloride 107.1 H (98-107) mmol/L Carbon Dioxide 31 H (22-30) mmol/L BUN 7 (7-17) mg/dL Creatinine 0.7 (0.7-1.2) mg/dL Glucose 81 (65-100) mg/dL Calcium 8.8 (8.4-10.2) mg/dL
[2016-11-24] MEDS: DILAUDID IV PRN (03:47)
[2016-11-24 08:24] LABS: Hematocrit 33.7 % (30.3-42.9); Hemoglobin 11.1 gm/dl (10.1-14.3); Mean Corpuscular HGB Conc 33 % (30-34); Mean Corpuscular Hemoglobin 31 pg (28-32); Mean Corpuscular Volume 93 fl (79-97); Platelet Count 268 K/mm3 (140-440); Red Blood Count 3.63 M/mm3 (3.65-5.03); Red Cell Distribution Width 14.2 % (13.2-15.2); White Blood Count 19.6 K/mm3 (4.5-11.0)
[2016-11-24 08:34] LABS: Anion Gap 15 mmol/L; BUN/Creatinine Ratio 11.66; Blood Urea Nitrogen 7 mg/dL (7-17); Calcium 8.5 mg/dL (8.4-10.2); Carbon Dioxide 27 mmol/L (22-30); Chloride 103.5 mmol/L (98-107); Glucose 76 mg/dL (65-100); Potassium 3.7 mmol/L (3.6-5.0); Sodium 142 mmol/L (137-145)
[2016-11-24] MEDS: PERCOCET 5/325 PO PRN (08:38)
[2016-11-24 09:25] LABS: Basophils % (Manual) 0 % (0.0-1.8); Blastocytes % (Manual) 0 %
[2016-11-24 09:26] LABS: Diff Status Complete; RBC Morphology Normal
[2016-11-24] MEDS: PEPCID PO SCH (09:47)
[2016-11-24 09:52] VITALS: BP 117/55
--- NOTE | 2016-11-24 10:07 | Progress Note ---
Assessment and Plan Pt feeling well. without compl alva diet Abd soft surgically stable reg diet may d/c from surg perspective if diet alva rto this tues Selected Entries 11/24/16 11/24/16 08:00 08:38 Temperature 98.6 F Pulse Rate [ 73 Radial] Respiratory 18 Rate Blood Pressure 117/55 [Left Arm] Laboratory Tests 11/24/16 11/24/16 07:17 07:17 WBC 19.6 H Hgb 11.1 Hct 33.7 Sodium 142 D Potassium 3.7 Chloride 103.5 Carbon Dioxide 27 BUN 7 Creatinine 0.6 L Objective Vital Signs - 12hr 11/23/16 11/24/16 11/24/16 23:00 08:00 08:38 Temperature 98.8 F 98.6 F Pulse Rate [ 70 Left Radial] Pulse Rate [ 70 73 Radial] Respiratory 14 18 18 Rate Blood Pressure 121/68 117/55 [Left Arm] O2 Sat by Pulse 97 100 Oximetry - Labs 11/24/16 07:17 11/24/16 07:17 Diabetes panel 11/24/16 Range/Units 07:17 Sodium 142 D (137-145) mmol/L Potassium 3.7 (3.6-5.0) mmol/L Chloride 103.5 (98-107) mmol/L Carbon Dioxide 27 (22-30) mmol/L BUN 7 (7-17) mg/dL Creatinine 0.6 L (0.7-1.2) mg/dL Glucose 76 (65-100) mg/dL Calcium 8.5 (8.4-10.2) mg/dL Calcium panel 11/24/16 Range/Units 07:17 Calcium 8.5 (8.4-10.2) mg/dL Pituitary panel 11/24/16 Range/Units 07:17 Sodium 142 D (137-145) mmol/L Potassium 3.7 (3.6-5.0) mmol/L Chloride 103.5 (98-107) mmol/L Carbon Dioxide 27 (22-30) mmol/L BUN 7 (7-17) mg/dL Creatinine 0.6 L (0.7-1.2) mg/dL Glucose 76 (65-100) mg/dL Calcium 8.5 (8.4-10.2) mg/dL Adrenal panel 11/24/16 Range/Units 07:17 Sodium 142 D (137-145) mmol/L Potassium 3.7 (3.6-5.0) mmol/L Chloride 103.5 (98-107) mmol/L Carbon Dioxide 27 (22-30) mmol/L BUN 7 (7-17) mg/dL Creatinine 0.6 L (0.7-1.2) mg/dL Glucose 76 (65-100) mg/dL Calcium 8.5 (8.4-10.2) mg/dL
--- NOTE | 2016-11-24 10:45 | Progress Note ---
Subjective - Reason for Consult Consult date: 11/23/16 Reason for consult: follow up - Chief Complaint Chief complaint: late entry from 11/23/16 "I feel better today." 21-year-old female seen on the medical floor psychiatric follow up. She presented to the hospital with abdominal pain, nausea, vomiting, and body aches. She underwent a laparotomy to treat intussusception 3 days ago. She was observed drinking tea today. She states she wants a sandwich and discussed how she feels better. She admits to depression but is focused on her physical well- being at this time. She remains interested in outpatient treatment for depression. She denies suicidal ideation, homicidal ideation, or psychotic symptoms. Mental Status Exam - Vital signs Last Vital Signs Temp 98.6 F 11/24/16 08:00 Pulse 73 11/24/16 08:00 Resp 18 11/24/16 08:38 BP 117/55 11/24/16 08:00 Pulse Ox 100 11/24/16 08:00 Assessment and Plan Mental Status Exam Orientation: time, place, person Affect: depressed Mood: congruent with affect Thought content: other (no SI, no HI) Thought Process: Intact Perceptions: none Speech: normal rate and pattern Concentration: focused Motor activity: normal Level of consciousness: alert Sleep Symptoms: None Appetite: decreased Interaction: cooperative Assessment and plan: Impression: major depression, mild No suicidal ideation. Recent medical events and current health is an acute stressor 1013 is not indicated Recommendation: Outpatient mental health referrals will be provided. Consider an antidepressant once her GI condition has improved.
[2016-11-24] MEDS ORDERED: NACL 0.45% 1000 ML 1,000 ML IV SCH (11:00)
--- NOTE | 2016-11-24 11:19 | Progress Note ---
Hospitalist Physical - Constitutional Vitals: Temp Pulse Resp BP Pulse Ox 98.6 F 73 18 117/55 100 11/24/16 08:00 11/24/16 08:00 11/24/16 08:38 11/24/16 08:00 11/24/16 08:00 General appearance: Present: no acute distress, well-nourished, other (non- toxic appearance) Results - Labs CBC & Chem 7: 11/24/16 07:17 11/24/16 07:17 Labs: Laboratory Last Values WBC 19.6 K/mm3 (4.5-11.0) H 11/24/16 07:17 RBC 3.63 M/mm3 (3.65-5.03) L 11/24/16 07: Hgb 11.1 gm/dl (10.1-14.3) 11/24/16 07: Hct 33.7 % (30.3-42.9) 11/24/16 07: MCV 93 fl (79-97) 11/24/16 07: MCH 31 pg (28-32) 11/24/16 07:17 MCHC 33 % (30-34) 11/24/16 07:17 RDW 14.2 % (13.2-15.2) 11/24/16 07:17 Plt Count 268 K/mm3 (140-440) 11/24/16 07:17 Lymph % (Auto) 8.8 % (13.4-35.0) L 11/22/16 05:39 [place] % (Auto) 8.9 % (0.0-7.3) H 11/22/16 05:39 Eos % (Auto) 4.1 % (0.0-4.3) 11/22/16 05:39 Baso % (Auto) 0.1 % (0.0-1.8) 11/22/16 05:39 Lymph # 1.6 K/mm3 (1.2-5.4) 11/22/16 05:39 [place] # 1.6 K/mm3 (0.0-0.8) H 11/22/16 05:39 Eos # 0.7 K/mm3 (0.0-0.4) H 11/22/16 05:39 Baso # 0.0 K/mm3 (0.0-0.1) 11/22/16 05:39 Add Manual Diff Complete 11/24/16 07:17 Total Counted 100 11/24/16 07:17 Seg Neutrophils % 78.1 % (40.0-70.0) H 11/22/16 05:39 Seg Neuts % (Manual) 78.0 % (40.0-70.0) H 11/24/16 07:17 Band Neutrophils % 0 % 11/24/16 07:17 Lymphocytes % (Manual) 8.0 % (13.4-35.0) L 11/24/16 07:17 Reactive Lymphs % (Man) 0 % 11/24/16 07:17 Monocytes % (Manual) 7.0 % (0.0-7.3) 11/24/16 07:17 Eosinophils % (Manual) 3.0 % (0.0-4.3) 11/24/16 07:17 Basophils % (Manual) 0 % (0.0-1.8) 11/24/16 07:17 Metamyelocytes % 1.0 % 11/24/16 07:17 Myelocytes % 3.0 % 11/24/16 07:17 Promyelocytes % 0 % 11/24/16 07:17 Blast Cells % 0 % 11/24/16 07:17 Nucleated RBC % Not Reportable 11/24/16 07:17 Seg Neutrophils # 13.9 K/mm3 (1.8-7.7) H 11/22/16 05:39 Seg Neutrophils # Man 15.3 K/mm3 (1.8-7.7) H 11/24/16 07:17 Band Neutrophils # 0.0 K/mm3 11/24/16 07:17 Lymphocytes # (Manual) 1.6 K/mm3 (1.2-5.4) 11/24/16 07:17 Abs React Lymphs (Man) 0.0 K/mm3 11/24/16 07:17 Monocytes # (Manual) 1.4 K/mm3 (0.0-0.8) H 11/24/16 07:17 Eosinophils # (Manual) 0.6 K/mm3 (0.0-0.4) H 11/24/16 07:17 Basophils # (Manual) 0.0 K/mm3 (0.0-0.1) 11/24/16 07:17 Metamyelocytes # 0.2 K/mm3 11/24/16 07:17 Myelocytes # 0.6 K/mm3 11/24/16 07:17 Promyelocytes # 0.0 K/mm3 11/24/16 07:17 Blast Cells # 0.0 K/mm3 11/24/16 07:17 WBC Morphology Not Reportable 11/24/16 07:17 Hypersegmented Neuts Not Reportable 11/24/16 07:17 Hyposegmented Neuts Not Reportable 11/24/16 07:17 Hypogranular Neuts Not Reportable 11/24/16 07:17 Smudge Cells Not Reportable 11/24/16 07:17 Toxic Granulation Not Reportable 11/24/16 07:17 Toxic Vacuolation Not Reportable 11/24/16 07:17 Dohle Bodies Not Reportable 11/24/16 07:17 Pelger-Huet Anomaly Not Reportable 11/24/16 07:17 Bob Rods Not Reportable 11/24/16 07:17 Platelet Estimate Appears normal 11/24/16 07:17 Clumped Platelets Not Reportable 11/24/16 07:17 Plt Clumps, EDTA Not Reportable 11/24/16 07:17 Large Platelets Not Reportable 11/24/16 07:17 Giant Platelets Not Reportable 11/24/16 07:17 Platelet Satelliting Not Reportable 11/24/16 07:17 Plt Morphology Comment Not Reportable 11/24/16 07:17 RBC Morphology Normal 11/24/16 07:17 Dimorphic RBCs Not Reportable 11/24/16 07:17 Polychromasia Not Reportable 11/24/16 07:17 Hypochromasia Not Reportable 11/24/16 07:17 Poikilocytosis Not Reportable 11/24/16 07:17 Anisocytosis Not Reportable 11/24/16 07:17 Microcytosis Not Reportable 11/24/16 07:17 Macrocytosis Not Reportable 11/24/16 07:17 Spherocytes Not Reportable 11/24/16 07:17 Pappenheimer Bodies Not Reportable 11/24/16 07:17 Sickle Cells Not Reportable 11/24/16 07:17 Target Cells Not Reportable 11/24/16 07:17 Tear Drop Cells Not Reportable 11/24/16 07:17 Ovalocytes Not Reportable 11/24/16 07:17 Helmet Cells Not Reportable 11/24/16 07:17 [place] Bodies Not Reportable 11/24/16 07:17 [place] Rings Not Reportable 11/24/16 07:17 [place] Cells Not Reportable 11/24/16 07:17 Bite Cells Not Reportable 11/24/16 07:17 Crenated Cell Not Reportable 11/24/16 07:17 Elliptocytes Not Reportable 11/24/16 07:17 Acanthocytes (Spur) Not Reportable 11/24/16 07:17 Rouleaux Not Reportable 11/24/16 07:17 Hemoglobin C Crystals Not Reportable 11/24/16 07:17 Schistocytes Not Reportable 11/24/16 07:17 Malaria parasites Not Reportable 11/24/16 07:17 Saeed Bodies Not Reportable 11/24/16 07:17 Hem Pathologist Commnt No 11/24/16 07:17 Sodium 142 mmol/L (137-145) D 11/24/16 07:17 Potassium 3.7 mmol/L (3.6-5.0) 11/24/16 07:17 Chloride 103.5 mmol/L (98-107) 11/24/16 07:17 Carbon Dioxide 27 mmol/L (22-30) 11/24/16 07:17 Anion Gap 15 mmol/L 11/24/16 07:17 BUN 7 mg/dL (7-17) 11/24/16 07:17 Creatinine 0.6 mg/dL (0.7-1.2) L 11/24/16 07:17 Estimated GFR > 60 ml/min 11/24/16 07:17 BUN/Creatinine Ratio 11.66 % 11/24/16 07:17 Glucose 76 mg/dL (65-100) 11/24/16 07:17 Lactic Acid 1.80 mmol/L (0.7-2.0) 11/19/16 13:52 Calcium 8.5 mg/dL (8.4-10.2) 11/24/16 07:17 Magnesium 1.80 mg/dL (1.7-2.3) 11/22/16 14:57 Total Bilirubin 0.60 mg/dL (0.1-1.2) 11/20/16 05:15 Direct Bilirubin 1.0 mg/dL (0-0.2) H 11/16/16 20:55 Indirect Bilirubin 0.9 mg/dL 11/16/16 20:55 AST 17 units/L (5-40) 11/20/16 05:15 ALT 21 units/L (7-56) 11/20/16 05:15 Alkaline Phosphatase 115 units/L (35-129) 11/20/16 05:15 Troponin T < 0.010 ng/mL (0.00-0.029) 11/16/16 20:55 Total Protein 6.0 g/dL (6.3-8.2) L 11/20/16 05:15 Albumin 2.5 g/dL (3.9-5) L 11/20/16 05:15 Albumin/Globulin Ratio 0.7 % 11/20/16 05:15 Lipase 105 units/L (13-60) H 11/16/16 20:55 HCG, Qual Negative (Negative) 11/19/16 13:52 Urine Color Yellow (Yellow) 11/16/16 23:41 Urine Turbidity Clear (Clear) 11/16/16 23:41 Urine pH 6.0 (5.0-7.0) 11/16/16 23:41 Ur Specific [place] 1.004 (1.003-1.030) 11/16/16 23:41 Urine Protein 30 mg/dl mg/dL (Negative) 11/16/16 23:41 Urine Glucose (UA) Neg mg/dL (Negative) 11/16/16 23:41 Urine Ketones Neg mg/dL (Negative) 11/16/16 23:41 Urine Blood Sm (Negative) 11/16/16 23:41 Urine Nitrite Neg (Negative) 11/16/16 23:41 Ur Reducing Substances Not Reportable 11/16/16 23:41 Urine Bilirubin Neg (Negative) 11/16/16 23:41 Urine Ictotest Not Reportable 11/16/16 23:41 Urine Urobilinogen < 2.0 mg/dL (<2.0) 11/16/16 23:41 Ur Leukocyte Esterase Neg (Negative) 11/16/16 23:41 Urine WBC (Auto) 4.0 /HPF (0.0-6.0) 11/16/16 23:41 Urine RBC (Auto) 2.0 /HPF (0.0-6.0) 11/16/16 23:41 Urine HCG, Qual Negative (Negative) 11/16/16 23:41 Blood Type O POSITIVE 11/19/16 13:35 Antibody Screen TNR 11/19/16 13:35 MARISSA Antibody Screen Negative 11/19/16 13:35
--- NOTE | 2016-11-24 12:23 | Discharge Summary ---
Providers - Providers Date of Admission: 11/17/16 07:55 Attending physician: ANNELIESE ROCK MD 11/19/16 10:24 Consult to Physician [CONS] Routine Consulting Provider: KRISTAL OSORIO Reason For Exam: abdominal pain concerning ?interssuscption Place consult to:: Notified:: OFFICE Phone number called:: [phone] Was contact made?: Yes If yes, spoke with:: DIEUDONNE Time called:: 11:28 Comment:: MARIBELL NOTIFIED 11/20/16 12:00 Consult to Mental Health [CONS] Routine Reason For Exam: history of bipolar Place consult to:: mental health Notified:: yes Phone number called:: [phone] Was contact made?: Yes If yes, spoke with:: Roseanne Time called:: 12:01 11/22/16 11:58 Consult to Physician [CONS] Routine Consulting Provider: JOEY SAGE Reason For Exam: elevated wbc's Place consult to:: DR. SAGE Notified:: MESSAGE LEFT ON CELL Phone number called:: [phone] Was contact made?: Yes If yes, spoke with:: DINA MESSAGE ON CELL Time called:: 12:05 Comment:: GRETCHEN MARROQUIN Primary care physician: STOCK PATCH SAWYER Hospitalization Condition: Stable Hospital course: 21-year-old female with no significant Past medical history presents to the hospital with nausea, vomiting and abdominal pain Intussusception of small bowel - Status post exploratory laparotomy on 11/19/16 - Patient didn't have any perforation, or gangrene of the bowel - Surgery is following her, diet advanced to full liquid - yet to have a BM Acute Bronchitis - Patient had cough which was productive of grayish sputum, CXR is negative - she completed 6 days of levaquin Hypernatremia/dehydration - continue d5w Hypokalemia continue to replete mag level wnl DVT prophylaxis -Lovenox - Advise to ambulate Disposition: DC-01 TO HOME OR SELFCARE Time spent for discharge: 33 minutes Core Measure Documentation - Palliative Care Palliative Care/ Comfort Measures: Not Applicable - Core Measures Any of the following diagnoses?: none Exam - Constitutional Vitals: Temp Pulse Resp BP Pulse Ox 98.6 F 73 18 117/55 100 11/24/16 08:00 11/24/16 08:00 11/24/16 08:38 11/24/16 08:00 11/24/16 08:00 General appearance: Present: no acute distress, well-nourished - EENT Eyes: Present: PERRL ENT: hearing intact, clear oral mucosa - Neck Neck: Present: supple, normal ROM - Respiratory Respiratory effort: normal Respiratory: bilateral: CTA - Cardiovascular Heart Sounds: Present: S1 & S2. Absent: rub, click - Extremities Extremities: pulses symmetrical, No edema Peripheral Pulses: within normal limits - Abdominal General gastrointestinal: Present: soft, non-tender, non-distended, normal bowel sounds Female genitourinary: Present: normal - Integumentary Integumentary: Present: clear, warm, dry - Musculoskeletal Musculoskeletal: gait normal, strength equal bilaterally - Psychiatric Psychiatric: appropriate mood/affect, intact judgment & insight - Neurologic Neurologic: CNII-XII intact, moves all extremities Plan Follow up with: PRIMARY MD CRISTY [Primary Care Provider] - 7 Days KRISTAL OSORIO MD [Staff Physician] - 7 Days Prescriptions: oxyCODONE /ACETAMINOPHEN [Percocet 5/325 mg] 2 tab PO Q6H PRN #30 tablet PRN Reason: Pain, Moderate (4-6)
--- NOTE | 2016-11-24 14:21 | Progress Note ---
Subjective - Reason for Consult Consult date: 11/24/16 Reason for consult: follow up - Chief Complaint Chief complaint: "I'm fine" 21-year-old female seen on the medical floor psychiatric follow up. She presented to the hospital with abdominal pain, nausea, vomiting, and body aches. She underwent a laparotomy to treat intussusception 5 days ago. She was prearing for discharge on interview. She plans to follow up for outpatient mental health services to address depression. She remains interested in outpatient treatment for depression. She denies suicidal ideation, homicidal ideation, or psychotic symptoms. Mental Status Exam - Vital signs Last Vital Signs Temp 98.6 F 11/24/16 08:00 Pulse 73 11/24/16 08:00 Resp 18 11/24/16 08:38 BP 117/55 11/24/16 08:00 Pulse Ox 100 11/24/16 08:00 Assessment and Plan Mental Status Exam Orientation: time, place, person Affect: depressed Mood: congruent with affect Thought content: other (no SI, no HI) Thought Process: Intact Perceptions: none Speech: normal rate and pattern Concentration: focused Motor activity: normal Level of consciousness: alert Sleep Symptoms: None Appetite: decreased Interaction: cooperative Assessment and plan: Impression: major depression, mild No suicidal ideation. Recent medical events and current health is an acute stressor 1013 is not indicated Recommendation: She was given the contact information for [facility] follow up with outpatient mental health and avoid mood altering substances, such as marijuana.
== END 2016-11-24 14:22 | disposition home or self-care (01) | DRG 342 ==
LOC: ED 20:39 → 3A 11-17 07:55
PROVIDERS: ADMIT Internal Medicine; ATTEND Internal Medicine
PROC: 0WJP0ZZ Inspection of Gastrointestinal Tract, Open Approach (ICD-10-PCS; principal; 2016-11-19)
PROC: 0DTJ0ZZ Resection of Appendix, Open Approach (ICD-10-PCS; 2016-11-19)
DX: K56.1 Intussusception (principal); R65.10 Systemic inflammatory response syndrome (SIRS) of non-infectious origin without acute organ dysfunction; E87.0 Hyperosmolality and hypernatremia; E86.0 Dehydration; E87.6 Hypokalemia; F32.9 Major depressive disorder, single episode, unspecified; B34.9 Viral infection, unspecified; I95.9 Hypotension, unspecified; D72.829 Elevated white blood cell count, unspecified; J40 Bronchitis, not specified as acute or chronic
CPT/HCPCS: 36415; 70450; 71010; 71020; 74000; 74177; 76700; 80048; 80053; 80074; 81001; 81025; 82140; 83690; 83735; 84132; 84484; 84703; 85007; 85025; 85027; 86850; 86900; 86901; 87040; 88302; 88304; 93005; 93010; 96361; 96374; 96375; J0330; J0690; J1100; J1170; J1885; J1956; J2250; J2405; J2704; J2710; J3480; J7030; J7040; J7042; J7070; J7120; Q9967